=== PATIENT | male | born 1965 | race Caucasian/White ===

== ENCOUNTER 2018-06-06 12:41 | Emergency (ER) | payer SELFPAY ==
[2018-06-06] MEDS ORDERED: LIDOCAINE 2% MPF 5 ML VIAL ONE (13:26)
[2018-06-06] MEDS ORDERED: SMZ./TMP. 800/160 MG TABLET ONE (13:27)
--- NOTE | 2018-06-06 14:13 | EDPHYS ---
Physician Documentation [facility] Name: Len Riddle Age: 53 yrs Sex: Male : 1965 Arrival Date: 06/06/2018 Time: 12:43 Bed 24 Private MD: ED Physician Sixto Fields HPI: 06/06 14:08 This 53 yrs old Male presents to ER via Ambulatory with complaints of Boil. kb 14:08 The patient presents with an abscess of the right axilla. Description: draining, kb erythematous, swollen, warm. Onset: The symptoms/episode began/occurred 1 week(s) ago. Possible cause(s): unknown. Associated signs and symptoms: Pertinent positives: drainage, erythema, swelling, Pertinent negatives: foreign body sensation, fever, headache, nausea, shortness of breath, vomiting. Modifying factors: the symptoms are alleviated by nothing, the symptoms are aggravated by pressure, squeezing the lesion and expressing the contents, touching. Severity of symptoms: At their worst the symptoms were mild, in the emergency department the symptoms are unchanged. The patient has not experienced similar symptoms in the past. The patient has not recently seen a physician. Pt reports abscess that started a week ago. Reports it popped this morning there was a lot of purulent drainage so he thought he needed antibiotics. Historical: - Allergies: 13:00 No Known Allergies; hb - Home Meds: 13:00 terazosin oral oral [Active]; Trazodone Oral [Active]; Prozac 10 mg Oral cap [Active]; hb - PMHx: 13:00 Enlarged Prostate; insomnia; Anxiety; Depression; hb - PSHx: 13:00 Kidney stents; hb - Immunization history:: Adult Immunizations. - Social history:: Smoking status: Patient/guardian denies using tobacco. - Ebola Screening: : No symptoms or risks identified at this time. ROS: 14:08 Constitutional: Negative for fever, chills, and weight loss, ENT: Negative for injury, kb pain, and discharge, Neck: Negative for injury, pain, and swelling, Cardiovascular: Negative for chest pain, palpitations, and edema, Respiratory: Negative for shortness of breath, cough, wheezing, and pleuritic chest pain, Abdomen/GI: Negative for abdominal pain, nausea, vomiting, diarrhea, and constipation, MS/Extremity: Negative for injury and deformity, Neuro: Negative for headache, weakness, numbness, tingling, and seizure. 14:08 Skin: Positive for abscess, erythema, swelling, of the right axilla. Exam: 14:08 Constitutional: This is a well developed, well nourished patient who is awake, alert, kb and in no acute distress. Head/Face: Normocephalic, atraumatic. Chest/axilla: Normal chest wall appearance and motion. Nontender with no deformity. No lesions are appreciated. Cardiovascular: Regular rate and rhythm with a normal S1 and S2. No gallops, murmurs, or rubs. Normal PMI, no JVD. No pulse deficits. Respiratory: Lungs have equal breath sounds bilaterally, clear to auscultation and percussion. No rales, rhonchi or wheezes noted. No increased work of breathing, no retractions or nasal flaring. Abdomen/GI: Soft, non-tender, with normal bowel sounds. No distension or tympany. No guarding or rebound. No evidence of tenderness throughout. MS/ Extremity: Pulses equal, no cyanosis. Neurovascular intact. Full, normal range of motion. Neuro: Awake and alert, GCS 15, oriented to person, place, time, and situation. Cranial nerves II-XII grossly intact. Motor strength 5/5 in all extremities. Sensory grossly intact. Cerebellar exam normal. Normal gait. 14:08 Skin: abscess, that is small, of the right axilla, with drainage, with fluctuance. Vital Signs: 12:59 BP 144 / 94; Pulse 66; Resp 16; Temp 97.7; Pulse Ox 100% on R/A; Pain 6/10; hb 14:10 BP 122 / 83; Pulse 67; Resp 19; Pulse Ox 100% on R/A; ca1 Procedures: 14:08 I \T\ D: Incision and drainage was performed for an abscess of the right axilla. Prepped kb with Betadine, Anesthetized with 1 ml's 1% Lidocaine. Incised with #11 blade. Drained small amount purulent fluid. Dressing: sterile 4x4 gauze, the patient tolerated the procedure well. MDM: 13:03 Patient medically screened. kb 14:08 Data reviewed: vital signs, nurses notes. Data interpreted: Pulse oximetry: on room air kb is 100 %. Interpretation: normal. Counseling: I had a detailed discussion with the patient and/or guardian regarding: the historical points, exam findings, and any diagnostic results supporting the discharge/admit diagnosis, the need for outpatient follow up, a family practitioner, to return to the emergency department if symptoms worsen or persist or if there are any questions or concerns that arise at home. 06/06 14:04 Order name: Wound Culture ca1 06/06 13:09 Order name: I\T\D Setup; Complete Time: 13:13 kb Administered Medications: 13:19 Drug: Bactrim (160 mg-800 mg (DS) 1 tablet Route: PO; ca1 13:58 Follow up: Response: No adverse reaction ca1 13:40 Drug: Lidocaine (2 %) 1 vials Volume: 5 ml; Route: Infiltration; ca1 14:19 Follow up: Response: No adverse reaction ca1 Disposition: 14:31 Co-signature as Attending Physician, Sixto Fields MD I agree with the assessment and kdr plan of care. Disposition: 06/06/18 14:12 Discharged to Home. Impression: Cutaneous abscess of right axilla. - Condition is Stable. - Discharge Instructions: Skin Abscess, [id number], Incision and Drainage, Care After. - Prescriptions for Bactrim DS 800- 160 mg Oral Tablet - take 1 tablet by ORAL route every 12 hours for 10 days; 20 tablet. - Medication Reconciliation Form, Thank You Letter, Antibiotic Education, Prescription Opioid Use form. - Follow up: Emergency Department; When: As needed; Reason: Worsening of condition. Follow up: Private Physician; When: 2 - 3 days; Reason: Recheck today's complaints, Continuance of care, Re-evaluation by your physician. Signatures: Dispatcher [employer] EDKS Gail Anderson, KAREN-C KAREN-Sixto Graham MD MD [facility] Yuli Rogers RN RN Liz Dhillon RN RN ca1 Corrections: (The following items were deleted from the chart) 14:12 14:08 The patient presents with an abscess of the right lateral anterior chest, kb kb 14:12 14:08 Skin: Positive for abscess, erythema, swelling, of the right lateral anterior kb chest, kb 14:26 14:12 06/06/2018 14:12 Discharged to Home. Impression: Cutaneous abscess of right ca1 axilla. Condition is Stable. Forms are Medication Reconciliation Form, Thank You Letter, Antibiotic Education, Prescription Opioid Use. Follow up: Emergency Department; When: As needed; Reason: Worsening of condition. Follow up: Private Physician; When: 2 - 3 days; Reason: Recheck today's complaints, Continuance of care, Re-evaluation by your physician. kb
--- NOTE | 2018-06-06 14:13 | ER ---
Nurse's Notes [facility] Name: Len Riddle Age: 53 yrs Sex: Male : 1965 Arrival Date: 06/06/2018 Time: 12:43 Bed 24 Private MD: Diagnosis: Cutaneous abscess of right axilla Presentation: 06/06 12:58 Presenting complaint: Patient states: Abscess right flank x 1 week. Transition of care: hb patient was not received from another setting of care. Onset of symptoms was May 30, 2018. Risk Assessment: Do you want to hurt yourself or someone else? Patient reports no desire to harm self or others. Care prior to arrival: None. 12:58 Method Of Arrival: Ambulatory 12:58 Acuity: ISABEL 4 hb 13:05 Initial Sepsis Screen: Does the patient meet any 2 criteria? No. Patient's initial ca1 sepsis screen is negative. Does the patient have a suspected source of infection? Yes: Skin breakdown/wound. Historical: - Allergies: 13:00 No Known Allergies; hb - Home Meds: 13:00 terazosin oral oral [Active]; Trazodone Oral [Active]; Prozac 10 mg Oral cap [Active]; hb - PMHx: 13:00 Enlarged Prostate; insomnia; Anxiety; Depression; hb - PSHx: 13:00 Kidney stents; hb - Immunization history:: Adult Immunizations. - Social history:: Smoking status: Patient/guardian denies using tobacco. - Ebola Screening: : No symptoms or risks identified at this time. Screenin:05 Abuse screen: Denies threats or abuse. Nutritional screening: No deficits noted. ca1 Tuberculosis screening: No symptoms or risk factors identified. Fall Risk None identified. Assessment: 13:05 General: Appears in no apparent distress. comfortable, Behavior is calm, cooperative, ca1 appropriate for age. Pain: Complains of pain in at the area around the boil under the right armpit Pain does not radiate. Pain currently is 6 out of 10 on a pain scale. Pain began 2-3 days ago. Neuro: Level of Consciousness is awake, alert, obeys commands, Oriented to person, place, time, situation. Cardiovascular: Heart tones S1 S2 present Capillary refill < 3 seconds Patient's skin is warm and dry. Respiratory: Airway is patent Respiratory effort is even, unlabored, Respiratory pattern is regular, symmetrical, Breath sounds are clear bilaterally. GI: No deficits noted. No signs and/or symptoms were reported involving the gastrointestinal system. : No deficits noted. No signs and/or symptoms were reported regarding the genitourinary system. EENT: No deficits noted. No signs and/or symptoms were reported regarding the EENT system. Derm: Skin is healthy with good turgor, Skin is pink, warm \T\ dry. Wound noted boil under the R armpit. Musculoskeletal: Circulation, motion, and sensation intact. Capillary refill < 3 seconds. 14:10 Reassessment: Patient appears in no apparent distress at this time. Patient and/or ca1 family updated on plan of care and expected duration. Pain level reassessed. Patient is alert, oriented x 3, equal unlabored respirations, skin warm/dry/pink. Vital Signs: 12:59 BP 144 / 94; Pulse 66; Resp 16; Temp 97.7; Pulse Ox 100% on R/A; Pain 6/10; hb 14:10 BP 122 / 83; Pulse 67; Resp 19; Pulse Ox 100% on R/A; ca1 ED Course: 12:43 Patient arrived in ED. as 12:59 Triage completed. hb 13:00 Arm band placed on left wrist. hb 13:02 Gail Anderson FNP-C is [facility]. kb 13:02 Sixto Fields MD is Attending Physician. kb 13:05 Patient has correct armband on for positive identification. Placed in gown. Bed in low ca1 position. Call light in reach. Side rails up X 1. Pulse ox on. NIBP on. Warm blanket given. 13:13 Liz Dhillon, RN is Primary Nurse. ca1 13:40 Assist provider with I \T\ D: of an abscess on right axilla Set up I\T\D tray. Performed by ca 1 Gail HORNER Culture sent to lab. Wound packed. 4X4s, Dressing with 4X4s, tape Patient tolerated well. 14:08 Patient did not have IV access during this emergency room visit. ca1 Administered Medications: 13:19 Drug: Bactrim (160 mg-800 mg (DS) 1 tablet Route: PO; ca1 13:58 Follow up: Response: No adverse reaction ca1 13:40 Drug: Lidocaine (2 %) 1 vials Volume: 5 ml; Route: Infiltration; ca1 14:19 Follow up: Response: No adverse reaction ca1 Outcome: 14:12 Discharge ordered by MD. neumann 14:26 Discharged to home ambulatory. ca1 14:26 Condition: stable 14:26 Discharge instructions given to patient, Instructed on discharge instructions, follow up and referral plans. Demonstrated understanding of instructions, follow-up care, medications, Prescriptions given X 1. 14:26 Patient left the ED. ca1 Addendum: 06/10/2018 07:28 Addendum: Culture Results: Positive wound culture. No further action required. Bacteria s s sensitive to prescribed antibiotic. Signatures: Gail Anderson FNP-C FNP-Melissa Degroot Shelby, DONOVAN RN Yuli Rogers RN RN Liz Dhillon RN RN ca1 Corrections: (The following items were deleted from the chart) 06/06 14:18 14:08 Assist provider with I \T\ D: of an abscess on right axilla Set up I\T\D tray. ca 1 Performed by Gail HORNER Wound packed. 4X4s, Dressing with 4X4s, tape Patient tolerated well. ca1 14:25 13:40 Assist provider with I \T\ D: of an abscess on right axilla Set up I\T\D tray. ca 1 Performed by Gail HORNER Wound packed. 4X4s, Dressing with 4X4s, tape Patient tolerated well. ca1
[2018-06-06 14:39] VITALS: TEMP 97.7; O2SAT 100
[2018-06-06 14:40] VITALS: BP 122/83
== END 2018-06-06 14:26 | disposition home or self-care (01) ==
LOC: ER 12:41
PROC: 0J9D0ZZ Drainage of Right Upper Arm Subcutaneous Tissue and Fascia, Open Approach (ICD-10-PCS; principal; 2018-06-06)
DX: L02.411 Cutaneous abscess of right axilla (principal); N40.0 Benign prostatic hyperplasia without lower urinary tract symptoms; F41.9 Anxiety disorder, unspecified; F32.9 Major depressive disorder, single episode, unspecified
CPT/HCPCS: 87070; 87077; 87186; 87205; 99284

== ENCOUNTER 2018-07-06 12:28 | Emergency (ER) | payer SELFPAY ==
--- NOTE | 2018-07-06 13:29 | ER ---
Nurse's Notes [facility] Name: Len Riddle Age: 53 yrs Sex: Male : 1965 Arrival Date: 07/06/2018 Time: 12:29 Bed 25 Private MD: Diagnosis: Acute sinusitis Presentation: 07/06 12:49 Presenting complaint: Patient states: left ear pain and sinus pain for several days, iw chills, fatigue and dizziness. Transition of care: patient was not received from another setting of care. 12:49 Method Of Arrival: Ambulatory iw 12:50 Onset of symptoms was July 02, 2018. Risk Assessment: Do you want to hurt yourself or iw someone else? Patient reports no desire to harm self or others. Initial Sepsis Screen: Does the patient meet any 2 criteria? No. Patient's initial sepsis screen is negative. Does the patient have a suspected source of infection? No. Patient's initial sepsis screen is negative. Care prior to arrival: None. 12:50 Acuity: ISABEL 4 iw Historical: - Allergies: 12:51 No Known Allergies; iw - Home Meds: 12:51 Prozac 10 mg Oral tab [Active]; gabapentin 100 mg oral cap 3 times per day [Active]; iw - PMHx: 12:51 Anxiety; Depression; enlarged prostate; insomnia; iw - PSHx: 12:51 Kidney stents; iw - Immunization history:: Adult Immunizations not up to date. - Social history:: Smoking status: Patient/guardian denies using tobacco. - Ebola Screening: : Patient negative for fever greater than or equal to 101.5 degrees Fahrenheit, and additional compatible Ebola Virus Disease symptoms Patient denies exposure to infectious person Patient denies travel to an Ebola-affected area in the 21 days before illness onset No symptoms or risks identified at this time. Screenin:54 Abuse screen: Denies threats or abuse. Denies injuries from another. Nutritional aj screening: No deficits noted. Tuberculosis screening: No symptoms or risk factors identified. Fall Risk None identified. Assessment: 12:53 General: Appears in no apparent distress. comfortable, Behavior is calm, cooperative, aj appropriate for age. Pain: Denies pain. Neuro: Level of Consciousness is awake, alert, obeys commands, Oriented to person, place, time, situation, Appropriate for age. Respiratory: Airway is patent Trachea midline Respiratory effort is even, unlabored, Respiratory pattern is regular, symmetrical. EENT: Reports nasal congestion. Derm: Skin is intact, is healthy with good turgor, Skin is pink, warm \T\ dry. normal. Vital Signs: 12:51 BP 131 / 91; Pulse 70; Resp 16; Temp 98.0(O); Pulse Ox 97% on R/A; Weight 97.52 kg; iw Height 5 ft. 10 in. (177.80 cm); Pain 4/10; 13:37 BP 128 / 71; Pulse 70; Resp 20; Pulse Ox 96% on R/A; aj 12:51 Body Mass Index 30.85 (97.52 kg, 177.80 cm) iw ED Course: 12:29 Patient arrived in ED. as 12:41 Gail Anderson FNP-C is PHCP. kb 12:41 Denton Jeong MD is Attending Physician. kb 12:50 Triage completed. iw 12:51 Arm band placed on. iw 12:53 Anitha Paniagua, RN is Primary Nurse. aj 12:54 Patient has correct armband on for positive identification. aj 12:54 Flu and/or RSV swab sent to lab. Strep swab sent to lab. aj 13:29 Eden Knight MD is Referral Physician. kb 13:38 No provider procedures requiring assistance completed. Patient did not have IV access aj during this emergency room visit. Administered Medications: No medications were administered Outcome: 13:29 Discharge ordered by MD. kb 13:38 Discharged to home ambulatory. aj 13:38 Condition: good 13:38 Discharge instructions given to patient, Instructed on discharge instructions, follow up and referral plans. medication usage, Demonstrated understanding of instructions, follow-up care, medications. 13:39 Patient left the ED. aj Signatures: Gail Anderson FNP-C FNP-Anitha Farley, RN RN Melissa Soliman Irene, DONOVAN MAN iw
--- NOTE | 2018-07-06 13:29 | EDPHYS ---
Physician Documentation [facility] Name: Len Riddle Age: 53 yrs Sex: Male : 1965 Arrival Date: 07/06/2018 Time: 12:29 Bed 25 Private MD: ED Physician Denton Jeong HPI: 07/06 13:18 This 53 yrs old Male presents to ER via Ambulatory with complaints of Ear kb Pain, Sinus Pain. 13:18 The patient presents with pain, moderate. The complaints affect the left ear. Onset: kb The symptoms/episode began/occurred 3 day(s) ago. Modifying factors: The symptoms are alleviated by nothing, the symptoms are aggravated by nothing. Associated signs and symptoms: Pertinent positives: rhinorrhea, vertigo. Severity of symptoms: At their worst the symptoms were mild moderate in the emergency department the symptoms are unchanged. The patient has experienced similar episodes in the past, a few times. The patient has not recently seen a physician. Pt reports left ear pain that started a few days ago. Has had infection in that same ear a couple times a year. States he also has fatigue, sinus pain and congestion, headache and dizziness. Denies fever. Historical: - Allergies: 12:51 No Known Allergies; iw - Home Meds: 12:51 Prozac 10 mg Oral tab [Active]; gabapentin 100 mg oral cap 3 times per day [Active]; iw - PMHx: 12:51 Anxiety; Depression; enlarged prostate; insomnia; iw - PSHx: 12:51 Kidney stents; iw - Immunization history:: Adult Immunizations not up to date. - Social history:: Smoking status: Patient/guardian denies using tobacco. - Ebola Screening: : Patient negative for fever greater than or equal to 101.5 degrees Fahrenheit, and additional compatible Ebola Virus Disease symptoms Patient denies exposure to infectious person Patient denies travel to an Ebola-affected area in the 21 days before illness onset No symptoms or risks identified at this time. ROS: 13:16 Cardiovascular: Negative for chest pain, palpitations, and edema, Respiratory: Negative kb for shortness of breath, cough, wheezing, and pleuritic chest pain, Abdomen/GI: Negative for abdominal pain, nausea, vomiting, diarrhea, and constipation, MS/Extremity: Negative for injury and deformity, Skin: Negative for injury, rash, and discoloration. 13:16 Constitutional: Positive for chills, fatigue. 13:16 ENT: Positive for ear pain, rhinorrhea, sinus congestion. 13:16 Neuro: Positive for dizziness, headache. Exam: 13:16 Constitutional: This is a well developed, well nourished patient who is awake, alert, kb and in no acute distress. Head/Face: Normocephalic, atraumatic. ENT: Nares patent. No nasal discharge, no septal abnormalities noted. Tympanic membranes are normal and external auditory canals are clear. Oropharynx with no redness, swelling, or masses, exudates, or evidence of obstruction, uvula midline. Mucous membranes moist. Neck: Trachea midline, no thyromegaly or masses palpated, and no cervical lymphadenopathy. Supple, full range of motion without nuchal rigidity, or vertebral point tenderness. No Meningismus. Chest/axilla: Normal chest wall appearance and motion. Nontender with no deformity. No lesions are appreciated. Cardiovascular: Regular rate and rhythm with a normal S1 and S2. No gallops, murmurs, or rubs. Normal PMI, no JVD. No pulse deficits. Respiratory: Lungs have equal breath sounds bilaterally, clear to auscultation and percussion. No rales, rhonchi or wheezes noted. No increased work of breathing, no retractions or nasal flaring. Abdomen/GI: Soft, non-tender, with normal bowel sounds. No distension or tympany. No guarding or rebound. No evidence of tenderness throughout. Skin: Warm, dry with normal turgor. Normal color with no rashes, no lesions, and no evidence of cellulitis. MS/ Extremity: Pulses equal, no cyanosis. Neurovascular intact. Full, normal range of motion. Neuro: Awake and alert, GCS 15, oriented to person, place, time, and situation. Cranial nerves II-XII grossly intact. Motor strength 5/5 in all extremities. Sensory grossly intact. Cerebellar exam normal. Normal gait. 13:16 Head/face: Sinus tenderness, that is moderate, is located over the right frontal sinus, left frontal sinus, right maxillary sinus and left maxillary sinus. Vital Signs: 12:51 BP 131 / 91; Pulse 70; Resp 16; Temp 98.0(O); Pulse Ox 97% on R/A; Weight 97.52 kg; iw Height 5 ft. 10 in. (177.80 cm); Pain 4/10; 13:37 BP 128 / 71; Pulse 70; Resp 20; Pulse Ox 96% on R/A; aj 12:51 Body Mass Index 30.85 (97.52 kg, 177.80 cm) iw MDM: 12:41 Patient medically screened. kb 13:12 Data reviewed: vital signs, nurses notes. Data interpreted: Pulse oximetry: on room air kb is 97 %. Interpretation: normal. Counseling: I had a detailed discussion with the patient and/or guardian regarding: the historical points, exam findings, and any diagnostic results supporting the discharge/admit diagnosis, lab results, the need for outpatient follow up, a family practitioner, to return to the emergency department if symptoms worsen or persist or if there are any questions or concerns that arise at home. 07/06 12:48 Order name: Flu; Complete Time: 13:08 kb 07/06 12:48 Order name: Strep; Complete Time: 13:08 kb 07/06 13:08 Order name: Throat Culture EDMS Administered Medications: No medications were administered Disposition: 13:58 Co-signature as Attending Physician, Denton Jeong MD. rn Disposition: 07/06/18 13:29 Discharged to Home. Impression: Acute sinusitis. - Condition is Stable. - Discharge Instructions: Sinusitis, Adult, [id number]. - Medication Reconciliation Form, Thank You Letter, Antibiotic Education, Prescription Opioid Use form. - Follow up: Emergency Department; When: As needed; Reason: Worsening of condition. Follow up: Private Physician; When: 2 - 3 days; Reason: Recheck today's complaints, Continuance of care, Re-evaluation by your physician. Follow up: Eden Knight MD; When: 2 - 3 days; Reason: Recheck today's complaints. - Notes: Use Flonase as directed. Take an antihistamine with decongestant daily (zyrtec d, claritin d, or franc d) Signatures: Dispatcher [employer] EDMS Gail Anderson, BAT LATHE OPERATOR-C BAT LATHE OPERATOR-Anitha Farley RN RN Heaven Saxena RN RN iw Nieto, Roman, MD MD mds rn: (The following items were deleted from the chart) 13:18 13:16 ENT: Positive for rhinorrhea, sinus congestion, kb kb 13:29 13:29 07/06/2018 13:29 Discharged to Home. Impression: Acute sinusitis. Condition is kb Stable. Forms are Medication Reconciliation Form, Thank You Letter, Antibiotic Education, Prescription Opioid Use. Follow up: Emergency Department; When: As needed; Reason: Worsening of condition. Follow up: Private Physician; When: 2 - 3 days; Reason: Recheck today's complaints, Continuance of care, Re-evaluation by your physician. kb 13:39 13:29 07/06/2018 13:29 Discharged to Home. Impression: Acute sinusitis. Condition is aj Stable. Discharge Instructions: Sinusitis, Adult, [id number]. Forms are Medication Reconciliation Form, Thank You Letter, Antibiotic Education, Prescription Opioid Use. Follow up: Emergency Department; When: As needed; Reason: Worsening of condition. Follow up: Private Physician; When: 2 - 3 days; Reason: Recheck today's complaints, Continuance of care, Re-evaluation by your physician. Follow up: Eden Knight; When: 2 - 3 days; Reason: Recheck today's complaints. kb
[2018-07-06 13:42] VITALS: TEMP 98
[2018-07-06 13:43] VITALS: BP 128/71; O2SAT 96
== END 2018-07-06 13:39 | disposition home or self-care (01) ==
LOC: ER 12:28
DX: J01.90 Acute sinusitis, unspecified (principal); F41.9 Anxiety disorder, unspecified; F32.9 Major depressive disorder, single episode, unspecified
CPT/HCPCS: 87070; 87081; 87804; 99283

== ENCOUNTER 2019-12-20 11:25 | Emergency (ER) | payer SELFPAY ==
--- NOTE | 2019-12-20 12:11 | ER ---
Nurse's Notes [facility] Name: Len Riddle Age: 54 yrs Sex: Male : 1965 Arrival Date: 12/20/2019 Time: 11:27 Bed 5 Private MD: Diagnosis: Cellulitis of left lower limb Presentation: 12/19 11:36 Chief complaint: Patient states: Scrapped leg on tree and ladder Sunday. Abrasion down ll1 front of LLE. Pain, swelling, and redness started yesterday. No fever. Coronavirus screen: Client denies travel out of the [place] in the last 14 days. At this time, the client does not indicate any symptoms associated with coronavirus-19. Ebola Screen: Patient denies travel to an Ebola-affected area in the 21 days before illness onset. Initial Sepsis Screen: Does the patient meet any 2 criteria? No. Patient's initial sepsis screen is negative. Does the patient have a suspected source of infection? Yes: Skin breakdown/wound. Risk Assessment: Do you want to hurt yourself or someone else? Patient reports no desire to harm self or others. Onset of symptoms was December 15, 2019. 11:36 Method Of Arrival: Ambulatory ll1 11:36 Acuity: ISABEL 3 ll1 Historical: - Allergies: 11:36 No Known Allergies; ll1 - PMHx: 11:36 Anxiety; Depression; enlarged prostate; insomnia; Kidney stones; ll1 - PSHx: 11:36 Kidney stents; ll1 - Immunization history:: Flu vaccine is not up to date. - Social history:: Smoking status: Patient reports the use of cigarette tobacco products, cigars. Screenin:45 Abuse screen: Denies threats or abuse. Nutritional screening: No deficits noted. vg1 Tuberculosis screening: No symptoms or risk factors identified. Fall Risk No fall in past 12 months (0 pts). No secondary diagnosis (0 pts). No IV (0 pts). Gait- Normal/Bed Rest/Wheelchair (0 pts) Total Allen Fall Scale indicates No Risk (0-24 pts). Assessment: 11:45 General: Appears in no apparent distress. Behavior is calm, cooperative. Pain: vg1 Complains of pain in left stein. Neuro: Level of Consciousness is awake, alert, obeys commands, Oriented to person, place, time, situation. Cardiovascular: Capillary refill < 3 seconds Pulses are palpable in left dorsalis pedis artery. Respiratory: Airway is patent Respiratory effort is even, unlabored. Derm: Skin is pink, warm \T\ dry. LLE redness noted and warm to touch. Musculoskeletal: Swelling present in left stein and dorsum of left foot and left ankle. 12:45 Reassessment: Patient appears in no apparent distress at this time. No changes from vg1 previously documented assessment. Patient and/or family updated on plan of care and expected duration. Pain level reassessed. Pain level 8/10. Vital Signs: 11:36 BP 136 / 95; Pulse 85; Resp 17; Temp 98.0; Pulse Ox 97% ; Weight 97.52 kg; Height 5 ft. ll1 10 in. (177.80 cm); Pain 8/10; 11:49 BP 141 / 99; Pulse 80; Resp 14; Pulse Ox 98% on R/A; Pain 8/10; vg1 12:00 BP 125 / 84; Pulse 89; Resp 14; Pulse Ox 97% on R/A; vg1 11:36 Body Mass Index 30.85 (97.52 kg, 177.80 cm) ll1 ED Course: 11:27 Patient arrived in ED. ds1 11:36 Arm band placed on Patient placed in an exam room, on a stretcher. ll1 11:38 Triage completed. ll1 11:39 Kai Payne PA is PHCP. [facility] 11:39 Eugene Mirza MD is Attending Physician. [facility] 11:41 Olena Mancuso, RN is Primary Nurse. sv 11:45 No provider procedures requiring assistance completed. Patient did not have IV access vg1 during this emergency room visit. 11:47 Patient has correct armband on for positive identification. Bed in low position. Call vg1 light in reach. Pulse ox on. NIBP on. Door closed. 11:50 Nurse Practitioner and/or Physician Mission Commander to see patient. Kai KILLIAN at bedside. 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 Exp: vg1 05/01/2022. Lot #: [id number]. } Route: IM; Site: left deltoid; 12:50 Follow up: Response: No adverse reaction vg1 Outcome: 12:10 Discharge ordered by . fiorella 12:53 Discharged to home ambulatory, with family. vg1 12:53 Condition: good 12:53 Discharge instructions given to patient, Instructed on discharge instructions, follow up and referral plans. medication usage, Demonstrated understanding of instructions, follow-up care, medications, Prescriptions given X 3. 12:55 Patient left the ED. vg1 Signatures: Eden Reynaga RN RN Kai Payne PA PA jmm Sanford, Demi ds1 Olena Mancuso RN RN vg1 Shannan Islas RN RN ll1 Corrections: (The following items were deleted from the chart) 12:05 11:45 Derm: Skin is pink, warm \T\ dry. vg1 vg1
--- NOTE | 2019-12-20 12:11 | EDPHYS ---
Physician Documentation [facility] Name: Len Riddle Age: 54 yrs Sex: Male : 1965 Arrival Date: 12/20/2019 Time: 11:27 Bed 5 Private MD: ED Physician Eugene Mirza HPI: 12/19 11:41 This 54 yrs old Male presents to ER via Ambulatory with complaints of Leg jmm Pain. 11:41 The patient presents with an injury, pain. Onset: The symptoms/episode began/occurred jm acutely, 5 day(s) ago. Modifying factors: The symptoms are alleviated by nothing. the symptoms are aggravated by nothing. 11:41 Associated signs and symptoms: Pertinent positives: swelling, Pertinent negatives calf jmm tenderness, fever. 11:41 This is a 54 year old male with no chronic medical conditions that presents to the ED jmm with complaints of swelling to his left lower leg. Patient scraped his leg against a tree this past Sunday. Redness and swelling began today. Patient is not UTD on tetanus immunizations. . Historical: - Allergies: 11:36 No Known Allergies; ll1 - PMHx: 11:36 Anxiety; Depression; enlarged prostate; insomnia; Kidney stones; ll1 - PSHx: 11:36 Kidney stents; ll1 - Immunization history:: Flu vaccine is not up to date. - Social history:: Smoking status: Patient reports the use of cigarette tobacco products, cigars. ROS: 11:41 Constitutional: Negative for fever, chills, and weight loss, Cardiovascular: Negative jmm for chest pain, palpitations, and edema, Respiratory: Negative for shortness of breath, cough, wheezing, and pleuritic chest pain. 11:41 MS/extremity: Positive for swelling. 11:41 Skin: Positive for erythema. 11:41 All other systems are negative. Exam: 11:41 Constitutional: This is a well developed, well nourished patient who is awake, alert, jmm and in no acute distress. Head/Face: atraumatic. Eyes: EOMI, no conjunctival erythema appreciated ENT: Moist Mucus Membranes Neck: Trachea midline, Supple Chest/axilla: Normal chest wall appearance and motion. Cardiovascular: Regular rate and rhythm. No edema appreciated Respiratory: Normal respirations, no respiratory distress appreciated Abdomen/GI: Non distended, soft Back: Normal ROM 11:41 Skin: abrasion noted with surrounding erythema to the left lower leg. 11:41 Neuro: Orientation: is normal, Mentation: is normal, Memory: is normal. 11:41 Psych: Behavior/mood is pleasant, cooperative. Vital Signs: 11:36 BP 136 / 95; Pulse 85; Resp 17; Temp 98.0; Pulse Ox 97% ; Weight 97.52 kg; Height 5 ft. ll1 10 in. (177.80 cm); Pain 8/10; 11:49 BP 141 / 99; Pulse 80; Resp 14; Pulse Ox 98% on R/A; Pain 8/10; vg1 12:00 BP 125 / 84; Pulse 89; Resp 14; Pulse Ox 97% on R/A; vg1 11:36 Body Mass Index 30.85 (97.52 kg, 177.80 cm) ll1 MDM: 11:41 Patient medically screened. deana 12:10 Data reviewed: vital signs, nurses notes. Counseling: I had a detailed discussion with fiorella the patient and/or guardian regarding: the historical points, exam findings, and any diagnostic results supporting the discharge/admit diagnosis, radiology results, the need for outpatient follow up, to return to the emergency department if symptoms worsen or persist or if there are any questions or concerns that arise at home. Administered Medications: 12:32 Drug: Bactrim (160 mg-800 mg (DS) 1 tablet Route: PO; vg1 12:51 Follow up: Response: No adverse reaction; No change in condition vg1 12:32 Drug: Augmentin 875 mg Route: PO; vg1 12:51 Follow up: Response: No adverse reaction; No change in condition vg1 12:32 Drug: [place] 5 mg-325 mg 1 tabs {Note: RASS 0.} Route: PO; vg1 12:51 Follow up: Response: No adverse reaction; RASS: Alert and Calm (0) vg1 12:32 Drug: Tetanus-Diphtheria Toxoid Adult 0.5 ml {[place]: [employer]. Exp: vg1 05/01/2022. Lot #: [id number]. } Route: IM; Site: left deltoid; 12:50 Follow up: Response: No adverse reaction vg1 Disposition: 18:00 Co-signature as Attending Physician, Eugene Mirza MD I agree with the assessment and deana plan of care. Disposition: 10/10/20 12:10 Discharged to Home. Impression: Cellulitis of left lower limb. - Condition is Stable. - Discharge Instructions: Cellulitis, Adult. - Prescriptions for Augmentin 875- 125 mg Oral Tablet - take 1 tablet by ORAL route every 12 hours for 10 days; 20 tablet. Bactrim DS 800- 160 mg Oral Tablet - take 1 tablet by ORAL route every 12 hours for 10 days; 20 tablet. Ultracet 37.5- 325 mg Oral Tablet - take 1 tablet by ORAL route every 6 hours - for up to 5 days; do not exceed 8 tablets per day.; 20 tablet. - Medication Reconciliation Form, Thank You Letter, Antibiotic Education, Prescription Opioid Use form. - Follow up: Private Physician; When: 2 - 3 days; Reason: Recheck today's complaints, Continuance of care, Re-evaluation by your physician. Signatures: Eugene Mirza MD MD cha Mickail, Joel, PA PA jmm Garcia, Victoria, RN RN vg1 Shannan Islas RN RN ll1 Corrections: (The following items were deleted from the chart) 12:53 11:41 Modifying factors: The symptoms are alleviated by nothing. the symptoms are jmm aggravated by nothing. [facility] 12:55 12:10 12/20/2019 12:10 Discharged to Home. Impression: Cellulitis of left lower limb. vg1 Condition is Stable. Forms are Medication Reconciliation Form, Thank You Letter, Antibiotic Education, Prescription Opioid Use. Follow up: Private Physician; When: 2 - 3 days; Reason: Recheck today's complaints, Continuance of care, Re-evaluation by your physician. [facility]
[2019-12-20] MEDS ORDERED: SMZ./TMP. 800/160 MG TABLET ONE ×2 (12:25→12:45)
[2019-12-20] MEDS ORDERED: AMOX/K CLAV 875 MG TAB ONE ×2 (12:26→12:45)
[2019-12-20] MEDS ORDERED: HYDROCODONE/APAP 5/325 MG TAB ONE ×2 (12:26→12:45)
[2019-12-20] MEDS ORDERED: TETANUS & DIPHTHERIA TOX,ADULT 0.5 ML VIAL ONE ×2 (12:28→12:46)
[2019-12-20 13:02] VITALS: TEMP 98
[2019-12-20 13:05] VITALS: BP 125/84; O2SAT 97
== END 2019-12-20 12:55 | disposition home or self-care (01) ==
LOC: ER 11:25
DX: L03.116 Cellulitis of left lower limb (principal); F17.290 Nicotine dependence, other tobacco product, uncomplicated; Z23 Encounter for immunization
CPT/HCPCS: 90471; 90714; 99283

== ENCOUNTER 2022-03-11 13:10 | Emergency (ER) | payer SELFPAY ==
[2022-03-11] MEDS ORDERED: BUPIVACAINE 0.5% PF 10 ML VIAL ONE (13:48)
[2022-03-11] MEDS ORDERED: LIDOCAINE 1% MPF 5 ML VIAL ONE (13:48)
[2022-03-11] MEDS ORDERED: TDAP (DIPHTH,PERTUSS(ACELL),TET VAC) 0.5 ML VIAL IMVAC ONE (13:49)
[2022-03-11] MEDS ORDERED: DOXYCYCLINE 100 MG CAP PO ONE ×2 (14:24→14:25)
--- NOTE | 2022-03-11 15:13 | ER ---
Nurse's Notes [facility] Name: eLn Riddle Age: 57 yrs Sex: Male : 1965 Arrival Date: 03/11/2022 Time: 13:11 Bed 11 Private MD: Diagnosis: Laceration with foreign body of right thumb without damage to nail, initial encounter Presentation: 03/11 13:29 Chief complaint: Patient states: accidentally cut right thumb with utility knife kb3 yesterday around 1800. Coronavirus screen: Vaccine status: Patient reports receiving the 2nd dose of the covid vaccine. Client denies travel out of the [place] in the last 14 days. Ebola Screen: Patient negative for fever greater than or equal to 101.5 degrees Fahrenheit, and additional compatible Ebola Virus Disease symptoms Patient denies exposure to infectious person. Patient denies travel to an Ebola-affected area in the 21 days before illness onset. No symptoms or risks identified at this time. Initial Sepsis Screen: Does the patient meet any 2 criteria? No. Patient's initial sepsis screen is negative. Does the patient have a suspected source of infection? No. Patient's initial sepsis screen is negative. Risk Assessment: Do you want to hurt yourself or someone else? Patient reports no desire to harm self or others. Onset of symptoms was March 10, 2022 at 18:00. 13:29 Method Of Arrival: Ambulatory 3 13:29 Acuity: ISABEL 4 kb3 14:38 Acuity: ISABEL 3 jl7 Triage Assessment: 13:30 General: Appears in no apparent distress. Behavior is calm, cooperative. Pain: kb3 Complains of pain in dorsal aspect of distal phalanx of right thumb and dorsal aspect of proximal phalanx of right thumb Pain does not radiate. Pain currently is 5 out of 10 on a pain scale. Quality of pain is described as burning, heavy, Pain began 1 day ago. Is continuous. 13:30 Injury Description: Laceration sustained to dorsal aspect of distal phalanx of right kb3 thumb and dorsal aspect of proximal phalanx of right thumb is 0.5 to 2.5 cm long, was sustained 12-24 hours ago. a small amount of bleeding noted at this time. Historical: - Allergies: 13:30 No Known Allergies; kb3 - Home Meds: 13:30 gabapentin 100 mg Oral cap 3 times per day [Active]; Prozac 10 mg Oral tab [Active]; kb3 Trazodone Oral [Active]; - PMHx: 13:30 Anxiety; Depression; enlarged prostate; insomnia; Kidney stones; kb3 - PSHx: 13:30 Lithotripsy; kb3 - Immunization history:: Adult Immunizations up to date, Client reports receiving the 2nd dose of the Covid vaccine, Last tetanus immunization: unknown. - Social history:: Smoking status: Patient reports the use of cigarette tobacco products, cigars. Screenin:33 [facility] ED Fall Risk Assessment (Adult) History of falling in the last 3 months, kb3 including since admission No falls in past 3 months (0 pts) Confusion or Disorientation No (0 pts) Intoxicated or Sedated No (0 pts) Impaired Gait No (0 pts) Mobility Assist Device Used No (0 pt) Altered Elimination No (0 pt) Score/Fall Risk Level 0 - 2 = Low Risk Oriented to surroundings, Maintained a safe environment, Educated pt \T\ family on fall prevention, incl call for assistance when getting out of bed, Assessed \T\ reinforced patient's understanding of fall precautions, Provided non-skid footwear, Hourly rounding (assess needs \T\ fall precautionary measures) done, Used ambulatory aids as needed (educated on \T\ assisted with), Used gait belt as appropriate. Abuse screen: Denies threats or abuse. Denies injuries from another. Nutritional screening: No deficits noted. Tuberculosis screening: No symptoms or risk factors identified. Assessment: 13:33 General: see triage note. kb3 14:25 General: Ambulatory to restroom without distress. kb3 Vital Signs: 13:19 BP 141 / 106 LA Sitting (/lg); Pulse 93; Resp 16; Temp 97.8(O); Pulse Ox 97% on R/A; zm Weight 107.05 kg; Height 5 ft. 9 in. (175.26 cm); Pain 5/10; 13:19 Body Mass Index 34.85 (107.05 kg, 175.26 cm) ED Course: 13:11 Patient arrived in ED. rg4 13:13 [facility]C [facility] snw 13:13 Denton Jeong MD is Attending Physician. snw 13:21 Almita Moseley, RN is Primary Nurse. kb3 13:30 Triage completed. kb3 13:30 Arm band placed on right wrist. Patient placed in an exam room. kb3 13:33 Patient has correct armband on for positive identification. kb3 13:33 Suture repair. Patient did not have IV access during this emergency room visit. kb3 15:05 Hand Right 3 View XRAY In Process Unspecified. EDMS 15:50 Wound care: to laceration located on dorsal aspect of proximal phalanx of right thumb ph and dorsal aspect of distal phalanx of right thumb was dressed with Kerlix, Vaseline gauze, Patient tolerated well. Administered Medications: 13:48 Drug: Tetanus-Diphtheria Toxoid Adult 0.5 ml {Grey Tender: [place] [employer] ([place]). Exp: kb3 09/23/2022. Lot #: [id number]. } {Note: tDap administered due to tetanus unavailable, [facility] RN aware.} Route: IM; Site: right deltoid; 15:52 Follow up: Response: No adverse reaction ph 13:51 Drug: Marcaine (bupivacaine) (0.5 %) 5 ml Volume: 10 ml; Route: Infiltration; kb3 13:51 Drug: Hibiclens (chlorhexidine) Liquid 4 % 1 application Route: Topical; Site: affected kb3 area; 13:52 Drug: Lidocaine (1 %) 5 mg Route: Infiltration; kb3 14:25 Drug: Doxycycline 100 mg Route: PO; kb3 15:51 Follow up: Response: No adverse reaction ph Medication: 15:51 Vaccine Information Statement (VIS) provided today. Questions and/or concerns ph addressed. VIS edition date: October 15, 2020. Outcome: 15:12 Discharge ordered by . snselene 15:50 Discharged to home ambulatory. ph 15:50 Condition: good 15:50 Discharge instructions given to patient, Instructed on discharge instructions, follow up and referral plans. medication usage, Demonstrated understanding of instructions, follow-up care, medications, Prescriptions given X 2. 15:52 Patient left the ED. ph Signatures: Dispatcher [employer] EDMS Anai Fischer FNP-C FNP-Vanna Muñiz RN RN ph Yanelis Mancuso Jahala, RN RN jl7 Anneliese Sherman Kelly, RN RN kb3 Corrections: (The following items were deleted from the chart) 13:31 13:30 Home Meds: terazosin Oral; kb3 kb3 13:33 13:30 Pain: Complains of pain in dorsal aspect of distal phalanx of right thumb and kb3 dorsal aspect of proximal phalanx of right thumb kb3
--- NOTE | 2022-03-11 15:13 | EDPHYS ---
Physician Documentation [facility] Name: Len Riddle Age: 57 yrs Sex: Male : 1965 Arrival Date: 03/11/2022 Time: 13:11 Bed 11 Private MD: ED Physician Denton Jeong HPI: 03/11 13:58 This 57 yrs old Male presents to ER via Ambulatory with complaints of Finger Laceration.snw 13:58 The patient has a laceration related to: doing crafts, occurred at home, and there are snw no complicating factors. The laceration(s) is(are) located on the lateral aspect of right hand. Onset: The symptoms/episode began/occurred suddenly, just prior to arrival. Associated signs and symptoms: The patient has no apparent associated signs or symptoms. Onset: The symptoms/episode began/occurred acutely. Associated signs and symptoms: The patient has no apparent associated signs or symptoms. The patient has not experienced similar symptoms in the past. The patient has not recently seen a physician. unable to recall last tetanus. Historical: - Allergies: 13:30 No Known Allergies; kb3 - Home Meds: 13:30 gabapentin 100 mg Oral cap 3 times per day [Active]; Prozac 10 mg Oral tab [Active]; kb3 Trazodone Oral [Active]; - PMHx: 13:30 Anxiety; Depression; enlarged prostate; insomnia; Kidney stones; kb3 - PSHx: 13:30 Lithotripsy; kb3 - Immunization history:: Adult Immunizations up to date, Client reports receiving the 2nd dose of the Covid vaccine, Last tetanus immunization: unknown. - Social history:: Smoking status: Patient reports the use of cigarette tobacco products, cigars. ROS: 13:58 Constitutional: Negative for fever, chills, and weight loss, Eyes: Negative for injury, snw pain, redness, and discharge, ENT: Negative for injury, pain, and discharge, Neck: Negative for injury, pain, and swelling, Cardiovascular: Negative for chest pain, palpitations, and edema, Respiratory: Negative for shortness of breath, cough, wheezing, and pleuritic chest pain, Abdomen/GI: Negative for abdominal pain, nausea, vomiting, diarrhea, and constipation, Back: Negative for injury and pain, : Negative for injury, bleeding, discharge, and swelling, MS/Extremity: Negative for injury and deformity, Neuro: Negative for headache, weakness, numbness, tingling, and seizure, Psych: Negative for depression, anxiety, suicide ideation, homicidal ideation, and hallucinations. 13:58 Skin: Positive for laceration(s), of the dorsal aspect of proximal phalanx of right thumb and dorsal aspect of distal phalanx of right thumb. Exam: 13:51 Constitutional: This is a well developed, well nourished patient who is awake, alert, snw and in no acute distress. Head/Face: Normocephalic, atraumatic. Eyes: Pupils equal round and reactive to light, extra-ocular motions intact. Lids and lashes normal. Conjunctiva and sclera are non-icteric and not injected. Cornea within normal limits. Periorbital areas with no swelling, redness, or edema. ENT: Nares patent. No nasal discharge, no septal abnormalities noted. Tympanic membranes are normal and external auditory canals are clear. Oropharynx with no redness, swelling, or masses, exudates, or evidence of obstruction, uvula midline. Mucous membranes moist. Neck: Trachea midline, no thyromegaly or masses palpated, and no cervical lymphadenopathy. Supple, full range of motion without nuchal rigidity, or vertebral point tenderness. No Meningismus. Chest/axilla: Normal chest wall appearance and motion. Nontender with no deformity. No lesions are appreciated. Cardiovascular: Regular rate and rhythm with a normal S1 and S2. No gallops, murmurs, or rubs. Normal PMI, no JVD. No pulse deficits. Respiratory: Lungs have equal breath sounds bilaterally, clear to auscultation and percussion. No rales, rhonchi or wheezes noted. No increased work of breathing, no retractions or nasal flaring. Abdomen/GI: Soft, non-tender, with normal bowel sounds. No distension or tympany. No guarding or rebound. No evidence of tenderness throughout. Back: No spinal tenderness. No costovertebral tenderness. Full range of motion. MS/ Extremity: Pulses equal, no cyanosis. Neurovascular intact. Full, normal range of motion. Neuro: Awake and alert, GCS 15, oriented to person, place, time, and situation. Cranial nerves II-XII grossly intact. Motor strength 5/5 in all extremities. Sensory grossly intact. Cerebellar exam normal. Normal gait. Psych: Awake, alert, with orientation to person, place and time. Behavior, mood, and affect are within normal limits. 13:51 Skin: Appearance: Color: normal in color, injury, laceration(s), the wound is approximately 6 cm(s), with a depth of 2.5 cm(s), of the dorsal aspect of proximal phalanx of right thumb and dorsal aspect of distal phalanx of right thumb. Vital Signs: 13:19 BP 141 / 106 LA Sitting (/lg); Pulse 93; Resp 16; Temp 97.8(O); Pulse Ox 97% on R/A; zm Weight 107.05 kg; Height 5 ft. 9 in. (175.26 cm); Pain 5/10; 13:19 Body Mass Index 34.85 (107.05 kg, 175.26 cm) zm Laceration: 14:10 Wound Repair of 6cm ( 2.4in ) subcutaneous laceration to dorsal aspect of proximal snw phalanx of right thumb and dorsal aspect of distal phalanx of right thumb. Linear shaped.. Distal neuro/vascular/tendon intact. Anesthesia: Digital block administered with 5 mls of 1% lidocaine, Digital block administered with 5 mls of 0.25% marcaine. Wound prep: Extensive cleansing with hibiclenz. Skin closed with 4-0 Prolene using simple sutures and sterile technique. Skin closed with 8 4-0 Prolene using simple sutures and sterile technique. Dressed with tube gauze. Patient tolerated well. MDM: 13:13 Patient medically screened. snw 15:11 Data reviewed: vital signs, nurses notes. Data interpreted: Pulse oximetry: on room air snw is 97 %. Interpretation: normal. Counseling: I had a detailed discussion with the patient and/or guardian regarding: the historical points, exam findings, and any diagnostic results supporting the discharge/admit diagnosis, radiology results, the need for outpatient follow up, to return to the emergency department if symptoms worsen or persist or if there are any questions or concerns that arise at home. Response to treatment: the patient's symptoms have markedly improved after treatment. Special discussion: I have referred the patient to see his PCP for further evaluation of high blood pressure. Based on the history and exam findings, there is no indication for further emergent testing or inpatient evaluation. I discussed with the patient/guardian the need to see the primary care provider for further evaluation of the symptoms. 03/11 13:57 Order name: Hand Right 3 View XRAY; Complete Time: 15:24 snw 03/11 13:42 Order name: Wound Care; Complete Time: 14:20 snw 03/11 13:42 Order name: Suture Tray Setup; Complete Time: 13:46 snw Administered Medications: 13:48 Drug: Tetanus-Diphtheria Toxoid Adult 0.5 ml {Yarn Man: [employer] ([employer]). Exp: kb3 09/23/2022. Lot #: [id number]. } {Note: tDap administered due to tetanus unavailable, Anai UTILIZATION SUPERVISOR aware.} Route: IM; Site: right deltoid; 15:52 Follow up: Response: No adverse reaction ph 13:51 Drug: Marcaine (bupivacaine) (0.5 %) 5 ml Volume: 10 ml; Route: Infiltration; kb3 13:51 Drug: Hibiclens (chlorhexidine) Liquid 4 % 1 application Route: Topical; Site: affected kb3 area; 13:52 Drug: Lidocaine (1 %) 5 mg Route: Infiltration; kb3 14:25 Drug: Doxycycline 100 mg Route: PO; kb3 15:51 Follow up: Response: No adverse reaction ph Disposition: 17:54 Co-signature as Attending Physician, Denton Jeong MD. rn Disposition Summary: 03/11/22 15:12 Discharge Ordered Location: Home snw Condition: Stable snw Diagnosis - Laceration with foreign body of right thumb without damage to nail, initial snw encounter Followup: snw - With: Emergency Department - When: As needed - Reason: Worsening of condition Followup: snw - With: Private Physician - When: 10 - 14 days - Reason: Staple/Suture removal Discharge Instructions: - Discharge Summary Sheet snw - Laceration Care, Adult snw - Sutured Wound Care snw - Hand Washing snw - Hand Exercises snw Forms: - Medication Reconciliation Form snw - Thank You Letter snw - Antibiotic Education snw - Prescription Opioid Use snw Prescriptions: - Mobic 7.5 mg Oral Tablet - take 1 tablet by ORAL route once daily take with food; 20 tablet; Refills: 0, snw Product Selection Permitted - Doxycycline Hyclate 100 mg Oral Tablet - take 1 tablet by ORAL route every 12 hours; 20 tablet; Refills: 0, Product snw Selection Permitted Signatures: Dispatcher [employer] EDMS Anai Fischer, HOUSING PROPERTY MANAGER-C HOUSING PROPERTY MANAGER-Csnw Denton Jeong MD MD rn Bradberry, Kelly, RN RN kb3 Vanna Jean RN ph Corrections: (The following items were deleted from the chart) 13:31 13:30 Home Meds: terazosin Oral; kb3 kb3 14:03 13:42 Hand Left 3 View+RAD.RAD.BRZ ordered. EDMS EDMS 15:12 14:10 Wound Repair of 6cm ( 2.4in ) subcutaneous laceration to dorsal aspect of snw proximal phalanx of right thumb and dorsal aspect of distal phalanx of right thumb. Linear shaped.. Distal neuro/vascular/tendon intact. Anesthesia: Digital block administered with 5 mls of 1% lidocaine, Digital block administered with 5 mls of 0.25% marcaine. Wound prep: Extensive cleansing with hibiclenz. Skin closed with 4-0 Prolene using simple sutures and sterile technique. Dressed with tube gauze. Patient tolerated well. snw
--- NOTE | 2022-03-11 15:20 | RAD REPORT ---
EXAM DESCRIPTION: RAD - Hand Right 3 View - 03/11/2022 3:04 pm CLINICAL HISTORY: laceration COMPARISON: No comparisons FINDINGS/IMPRESSION: No acute fracture. No malalignment. No significant focal degenerative changes. No radiopaque foreign body
[2022-03-11 15:59] VITALS: BP 141/106; TEMP 97.8; O2SAT 97
== END 2022-03-11 15:52 | disposition home or self-care (01) ==
LOC: ER 13:10
PROC: 0HQFXZZ Repair Right Hand Skin, External Approach (ICD-10-PCS; principal; 2022-03-11)
DX: S61.011A Laceration without foreign body of right thumb without damage to nail, initial encounter (principal); Z23 Encounter for immunization
CPT/HCPCS: 90471; 99284; J2001

== ENCOUNTER 2022-11-24 19:06 | Observation (INO) | payer SELFPAY ==
--- OUTSIDE RECORDS SUMMARY | 2022-11-24 19:09 | XMS REPORT | Continuity of Care Document ---
:1965 Author Organization [facility] t Address [address] [place] [address] [address] [place] [address] Care Team Providers Name Role Phone Unavailable Unavailable Unavailable Problems This patient has no known problems. Allergies, Adverse Reactions, Alerts This patient has no known allergies or adverse reactions. Medications This patient has no known medications. Procedures This patient has no known procedures. Encounters Start End Encounter Admission Attending Care Care Encounter Source Date/Time Date/Time Type Type Clinicians Facility Department ID 2022-11-10 2022-11-10 Outpatient [facility] Farhad 10:55:06 10:55:06 [id number] Colon 2022-11-09 2022-11-09 Outpatient [facility] Farhad 17:06:19 17:06:19 [id number] Colon 2022-09-25 2022-09-25 Outpatient [facility] Farhad 13:16:51 13:16:51 [id number] F Colon 2022-09-08 2022-09-08 Outpatient [facility] Farhad 16:42:53 16:42:53 [id number] F Colon 2022-06-26 2022-06-26 Outpatient [facility] Farhad 14:13:43 14:13:43 [id number] Colon 2022-02-20 2022-02-20 Outpatient [facility] Farhad 17:17:11 17:17:11 [facility] 2022-02-03 2022-02-03 Outpatient [facility] Farhad 13:57:40 13:57:40 Ata Results Test Description Test Time Test Comments Results Result Comments Source SEDIMENTATION RATE 2022-11-11 07:37:11 Test Item Value Reference Range Interpretation Comme nts SEDIMENTATION RATE (test code = 2 MM/HOUR 0-15 UNLESS OTHERWISE INDICATED, ALL 1017) TESTING PERFORM ED AT CLINICAL PATHOLOGY [facility]. [address] [place] [address] LABORATORY DIRE CTOR: Brendon ZEE SANDRA NUMBER [id number] [facility] [place]. [id number] CBC W/AUTO DIFF WITH [id number] 07:35:18 Test Item Value Reference Range Interpretation Comments WBC (test code = 6.8 K/UL 3.5-11.0 1001) RBC (test code = 5.01 M/UL 4.50-6.10 1002) HEMOGLOBIN (test code 17.2 G/DL 13.5-17.0 H = 1003) HEMATOCRIT (test code 49.7 % 40.0-51.0 = 1004) MCV (test code = 99.2 fL 80.0-99.0 H 1005) MCH (test code = 34.3 PG 25.0-33.0 H 1006) MCHC (test code = 34.6 G/DL 31.0-36.0 1007) RDW (test code = 11.8 % 11.5-15.0 1038) NEUTROPHILS (test 51.4 % code = 1008) LYMPHOCYTES (test 35.4 % code = 1010) MONOCYTES (test code 7.9 % = 1011) EOSINOPHILS (test 3.7 % code = 1012) BASOPHILS (test code 0.9 % = 1013) IMMATURE GRANULOCYTES 0.7 % (test code = 1036) NUCLEATED RBCS (test 0.0 /100 WBC'S See_Comment [Aut omated code = 1065) message] The sy stem which generated this result transmitted reference range : 0.0. The refere nce range was not u sed to interpret th is result as normal/abnormal . PLATELET COUNT (test 271 K/UL 130-400 code = 1015) ABSOLUTE NEUTROPHILS 3.49 K/UL 1.50-7.50 (test code = 1066) ABSOLUTE LYMPHOCYTES 2.41 K/UL 1.00-4.00 (test code = 1067) ABSOLUTE MONOCYTES 0.54 K/UL 0.20-1.00 (test code = 1068) ABSOLUTE EOSINOPHILS 0.25 K/UL 0.00-0.50 (test code = 1040) ABSOLUTE BASOPHILS 0.06 K/UL 0.00-0.20 (test code = 1069) ABS IMMATURE 0.05 K/UL 0.00-0.10 GRANULOCYTES (test code = 1020) ABS NUCLEATED RBCS 0.00 K/UL 0.00-0.11 (test code = 23880) COMPREHENSIVE METABOLIC [id number] 05:07:17 Test Item Value Reference Range Interpretation Comments GLUCOSE (test code = 100 MG/DL 70-99 H 2216) BUN (test code = 18 MG/DL 6-20 2207) CREATININE (test 1.19 MG/DL 0.80-1.40 code = 2213) eGFR (2020 CKD-EPI) 70 ML/MIN/1.73 >60 (test code = 82818) CALC BUN/CREAT (test 15 RATIO 6-28 code = 223) SODIUM (test code = 140 MEQ/L 630-196 5824) POTASSIUM (test code 5.0 MEQ/L 3.5-5.4 = 2227) CHLORIDE (test code 103 MEQ/L 95-107 = 2214) CARBON DIOXIDE (test 26 MEQ/L 19-31 code = 2205) CALCIUM (test code = 9.6 MG/DL 8.5-10.5 2208) PROTEIN, TOTAL (test 7.4 G/DL 6.1-8.3 code = 2228) ALBUMIN (test code = 4.4 G/DL 3.5-5.2 2200) CALC GLOBULIN (test 3.0 G/DL 1.9-3.7 code = 2240) CALC A/G RATIO (test 1.5 RATIO 1.0-2.6 code = 223) BILIRUBIN, TOTAL 0.6 MG/DL See_Comment [Automated message] (test code = 2206) The syste m which generated this result transmit lucrecia reference range : <=1.2. The refe rence range was not u sed to interpret th is result as normal/abnormal . ALKALINE PHOSPHATASE 96 U/L 40-123 (test code = 2203) AST (test code = 58 U/L 9-50 H 2217) ALT (test code = 75 U/L 5-50 H 2218)
[2022-11-24] MEDS ORDERED: KETOROLAC 30 MG/ML INJ ONE (20:06)
--- NOTE | 2022-11-24 20:35 | RAD REPORT ---
EXAM DESCRIPTION: Brian Single View11/24/2022 8:14 pm CLINICAL HISTORY: Leg pain and swelling COMPARISON: 2016 FINDINGS: 8 millimeter nodular opacity overlies the right upper lobe. The remainder of the lungs appear clear of acute infiltrate. The heart is normal size IMPRESSION: 8 millimeter nodular opacity which overlies right upper lobe may represent a pulmonary n odule, rib sclerotic foci such as a bone island or confluence of ribs and vessels. A nonemergent unenhanced CT chest is recommended for further evaluation
[2022-11-24 20:49] LABS: Absolute Lymphocytes (CBC) 1.9 K/uL (0.7-4.9); Hematocrit 45.7 % (39.6-49.0); Lymphocytes % 18.5 % (15.3-44.8); MCV 101.2 fL (80-100); Platelets 228 thou/uL (152-406); RBC Red Blood Cell Count 4.51 M/uL (4.33-5.43)
[2022-11-24 20:53] LABS: Protime INR 0.95
--- NOTE | 2022-11-24 21:17 | RAD REPORT ---
EXAM DESCRIPTION: Nallely Venous Uni Ltd11/24/2022 8:40 pm CLINICAL HISTORY: Right leg pain and swelling. COMPARISON: 2014 FINDINGS: Right common femoral, greater saphenous and right posterior tibial veins are compressible and demonstrate augmentation. Doppler demonstrates good flow. Echogenic material consistent with acute thrombus is present within the mid and distal right superfic ial femoral and right popliteal veins. Veins are poorly compressible with diminished blood flow. Grayscale, color and spectral analysis performed on all vessels IMPRESSION: Acute thrombus right superficial femoral and right popliteal veins.
[2022-11-24 21:19] LABS: Albumin 3.4 g/dL (3.4-5.0); Bilirubin Direct 0.2 mg/dL (0-0.2); Bilirubin Indirect, Calculated 0.2 mg/dL (0.2-0.8); Bilirubin Total 0.4 mg/dL (0.2-1.0); Magnesium 2.2 mg/dL (1.6-2.4); Potassium 4.2 mEq/L (3.5-5.1)
--- NOTE | 2022-11-24 22:02 | RAD REPORT ---
EXAM DESCRIPTION: CT - Chest For Pe Angio - 11/24/2022 9:51 pm CLINICAL HISTORY: sob COMPARISON: 2014 TECHNIQUE: Dynamically enhanced axial 3 mm thick images of the chest were obtained during administra tion of 100 mL Isovue 370 IV contrast. Coronal and oblique reconstruction images were generated and r eviewed. Exam utilizes a protocol for optimal evaluation of pulmonary arterial tree. Maximum intensity projections 3D imaging was utilized All CT scans are performed using dose optimization technique as appropriate and may include automated exposure control or mA/KV adjustment according to patient size. FINDINGS: Thrombus is present within right upper and right lower lobe pulmonary arteries. No thrombus within the right main, left main, main or left pulmonary arteries. A thoracic aortic aneurysm is not noted. A pleural effusion is not seen. A pericardial effusion is not seen. No pulmonary infarction Fatty liver IMPRESSION: Right pulmonary emboli
--- NOTE | 2022-11-24 22:14 | ER ---
Nurse's Notes [facility] Name: Len Riddle Age: 57 yrs Sex: Male : 1965 Arrival Date: 11/24/2022 Time: 19:06 Bed 13 Private MD: Diagnosis: Acute embolism and thrombosis of unspecified deep veins of right lower extremity;Pulmonary embolism without acute cor pulmonale Presentation: 11/24 19:30 Chief complaint: Patient states: Right lower leg pain and swelling since yesterday. No kb3 hx of blood clots, not taking anticoagulants. Coronavirus screen: Vaccine status: Patient reports receiving the 2nd dose of the covid vaccine. Client denies travel out of the [place] in the last 14 days. Ebola Screen: Patient negative for fever greater than or equal to 101.5 degrees Fahrenheit, and additional compatible Ebola Virus Disease symptoms Patient denies exposure to infectious person. Patient denies travel to an Ebola-affected area in the 21 days before illness onset. Initial Sepsis Screen: Does the patient meet any 2 criteria? No. Patient's initial sepsis screen is negative. Does the patient have a suspected source of infection? No. Patient's initial sepsis screen is negative. Risk Assessment: Do you want to hurt yourself or someone else? Patient reports no desire to harm self or others. Onset of symptoms was November 23, 2022. 19:30 Method Of Arrival: Ambulatory kb3 19:30 Acuity: ISABEL 2 kb3 Triage Assessment: 19:31 General: Appears in no apparent distress. Behavior is calm, cooperative. Pain: kb3 Complains of pain in posterior aspect of right knee, right calf and right Achilles Pain does not radiate. Pain currently is 7 out of 10 on a pain scale. Quality of pain is described as pressure, sharp, Pain began 1 day ago. Historical: - Allergies: 19:31 No Known Allergies; kb3 - Home Meds: 19:31 Unknown BP medication [Active]; kb3 - PMHx: 19:31 Anxiety; Depression; enlarged prostate; insomnia; Kidney stones; Hypertensive disorder; kb3 - PSHx: 19:31 Lithotripsy; kb3 - Immunization history:: Adult Immunizations up to date. - Social history:: Smoking status: Patient denies any tobacco usage or history of. Screenin:40 [facility] ED Fall Risk Assessment (Adult) History of falling in the last 3 months, mb9 including since admission No falls in past 3 months (0 pts) Confusion or Disorientation No (0 pts) Intoxicated or Sedated No (0 pts) Impaired Gait No (0 pts) Mobility Assist Device Used No (0 pt) Altered Elimination No (0 pt) Score/Fall Risk Level 0 - 2 = Low Risk Oriented to surroundings, Maintained a safe environment, Educated pt \T\ family on fall prevention, incl call for assistance when getting out of bed. Abuse screen: Denies threats or abuse. Nutritional screening: No deficits noted. Tuberculosis screening: No symptoms or risk factors identified. Assessment: 19:39 General: Appears in no apparent distress. Behavior is calm, cooperative. Pain: mb9 Complains of pain in right leg Quality of pain is described as aching, throbbing, Pain began 2-3 days ago. Is intermittent. Neuro: Olvera Agitation-Sedation Scale (RASS): 0 - Alert and Calm Level of Consciousness is awake, alert, obeys commands, Oriented to person, place, time, situation, Appropriate for age. Cardiovascular: Denies chest pain, Heart tones S1 S2 present Patient's skin is warm and dry. Respiratory: Airway is patent Respiratory effort is even, unlabored, Respiratory pattern is regular, symmetrical, Breath sounds are clear bilaterally. Denies shortness of breath. GI: Abdomen is round non-distended, Bowel sounds present X 4 quads. Abd is soft and non tender X 4 quads. : No signs and/or symptoms were reported regarding the genitourinary system. EENT: No signs and/or symptoms were reported regarding the EENT system. Derm: Skin is pink, warm \T\ dry. Musculoskeletal: Range of motion: limited in all extremities, Swelling present in right leg. 20:41 Reassessment: No changes from previously documented assessment. Patient and/or family mb9 updated on plan of care and expected duration. Pain level reassessed. Patient is alert, oriented x 3, equal unlabored respirations, skin warm/dry/pink. 21:40 Reassessment: Patient and/or family updated on plan of care and expected duration. Pain ha1 level reassessed. Patient is alert, oriented x 3, equal unlabored respirations, skin warm/dry/pink. 22:30 Reassessment: Patient and/or family updated on plan of care and expected duration. Pain ha1 level reassessed. Patient is alert, oriented x 3, equal unlabored respirations, skin warm/dry/pink. Vital Signs: 19:30 BP 116 / 91; Pulse 96; Resp 20; Temp 98.1; Pulse Ox 100% ; Weight 108.86 kg; Height 5 kb3 ft. 9 in. ; Pain 7/10; 19:30 BP 116 / 77; Pulse 90; Resp 17 S; Pulse Ox 96% on R/A; ha1 20:30 BP 117 / 79; Pulse 86; Resp 16; Pulse Ox 97% on R/A; ha1 21:30 BP 114 / 84; Pulse 86; Resp 16 S; Pulse Ox 98% on R/A; ha1 22:30 BP 117 / 75; Pulse 87; Resp 18 S; Pulse Ox 98% on R/A; ha1 19:30 Body Mass Index 35.44 (108.86 kg, 175.26 cm) kb3 19:30 Pain Scale: Adult kb3 ED Course: 19:10 Patient arrived in ED. es 19:19 Eugene Brantley PA is PHCP. cp 19:19 Drake Luz DO is Attending Physician. cp 19:22 June Peters, DONOVAN is Primary Nurse. mb9 19:23 Arm band placed on. mb9 19:31 Triage completed. kb3 19:40 Placed in gown. Bed in low position. Call light in reach. Side rails up X 1. Client mb9 placed on continuous cardiac and pulse oximetry monitoring. NIBP monitoring applied. youth nutritional monitor on. Door closed. Noise minimized. Warm blanket given. 19:40 No provider procedures requiring assistance completed. mb9 20:00 Missed attempt(s): 22 gauge in left antecubital area. ha1 20:15 XRAY Chest (1 view) In Process Unspecified. EDMS 20:41 Basic Metabolic Panel Sent. mb9 20:41 CBC with Diff Sent. mb9 20:41 LFT's Sent. mb9 20:41 Magnesium Sent. mb9 20:41 NT PRO-BNP Sent. mb9 20:41 PT-INR Sent. mb9 20:41 Troponin HS Sent. mb9 20:41 Inserted saline lock: 22 gauge in left wrist, using aseptic technique. mb9 20:42 US Extremity Venous Unilateral Ltd In Process Unspecified. EDMS 20:42 Report given to DONOVAN Hale. mb9 21:52 CT Chest For PE Angio In Process Unspecified. EDMS 22:12 Tio Guerrero MD is Hospitalizing Provider. cp 23:24 Provided Education on: need for admit . ha1 23:24 Patient admitted, IV remains in place. ha1 Administered Medications: 20:41 Drug: Ketorolac IVP 15 mg Route: IVP; Site: left wrist; mb9 21:00 Follow up: Response: No adverse reaction; Pain is decreased ha1 22:30 Drug: Enoxaparin Sub-Q 1 mg/kg Route: Sub-Q; Site: abdomen; ha1 23:22 Follow up: Response: No adverse reaction ha1 Medication: 19:40 VIS not applicable for this client. mb9 Outcome: 22:13 Decision to Hospitalize by Provider. cp 23:22 Admitted to Med/surg accompanied by tech, via stretcher, room 220, Report called to ha1 DONOVAN Gordon 23:22 Condition: stable 23:22 Discharge instructions given to patient, family, Instructed on the need for admit, Demonstrated understanding of instructions. 23:25 Patient left the ED. ha1 Signatures: Dispatcher [employer] EDMS Kalani Yates Corey, PA PA cp Daxa Ivey, RN RN 1 Almita Moseley, RN RN thien3 June Peters RN RN mb9 Corrections: (The following items were deleted from the chart) 19:33 19:31 Home Meds: gabapentin 100 mg Oral cap 3 times per day; kb3 kb3 19:33 19:31 Home Meds: Prozac 10 mg Oral tab; kb3 kb3 19:33 19:31 Home Meds: terazosin Oral; kb3 kb3 19:33 19:31 Home Meds: Trazodone Oral; kb3 kb3
--- NOTE | 2022-11-24 22:14 | EDPHYS ---
Physician Documentation [facility] Name: Len Riddle Age: 57 yrs Sex: Male : 1965 Arrival Date: 11/24/2022 Time: 19:06 Bed 13 Private MD: ED Physician Drake Luz HPI: 11/24 20:00 This 57 yrs old Male presents to ER via Ambulatory with complaints of Leg Swelling. cp 20:00 The patient presents with pain, that is acute. The complaints affect the right lower cp leg. 20:00 Context: resulted from an unknown cause, the patient can fully bear weight, the patient cp is able to ambulate, with mild difficulty, Problem is a result from a previous injury: No. Onset: The symptoms/episode began/occurred yesterday, and became worse today. Associated signs and symptoms: Pertinent positives: calf tenderness, swelling, warmth, Pertinent negatives fever, numbness, weakness. Treatment prior to arrival includes: no previous treatment. Severity of symptoms: in the emergency department the symptoms are unchanged, despite home interventions. Historical: - Allergies: 19:31 No Known Allergies; kb3 - Home Meds: 19:31 Unknown BP medication [Active]; kb3 - PMHx: 19:31 Anxiety; Depression; enlarged prostate; insomnia; Kidney stones; Hypertensive disorder; kb3 - PSHx: 19:31 Lithotripsy; kb3 - Immunization history:: Adult Immunizations up to date. - Social history:: Smoking status: Patient denies any tobacco usage or history of. ROS: 20:05 Constitutional: Negative for body aches, chills, fever, poor PO intake. cp 20:05 MS/extremity: Positive for pain, swelling, tenderness, of the right lower leg, Negative cp for injury or acute deformity, decreased range of motion, erythema, paresthesias. 20:05 Respiratory: Positive for shortness of breath, Negative for cough, hemoptysis, wheezing.cp 20:05 Eyes: Negative for injury, pain, redness, and discharge. cp 20:05 ENT: Negative for drainage from ear(s), ear pain, sore throat, difficulty swallowing, difficulty handling secretions. 20:05 Cardiovascular: Negative for chest pain, palpitations. 20:05 Abdomen/GI: Negative for abdominal pain, nausea, vomiting, and diarrhea. 20:05 Back: Negative for injury or acute deformity, pain at rest, pain with movement. 20:05 : Negative for urinary symptoms, testicular pain 20:05 Skin: Negative for cellulitis, rash. 20:05 Neuro: Negative for altered mental status, dizziness, headache, syncope, weakness. 20:05 All other systems are negative. Exam: 20:13 ECG was reviewed by the Attending Physician. cp 20:15 Constitutional: The patient appears in no acute distress, alert, awake, cp non-diaphoretic, non-toxic, well developed, well nourished, uncomfortable. 20:15 Head/Face: Normocephalic, atraumatic. cp 20:15 Eyes: Periorbital structures: appear normal, Conjunctiva: normal, no exudate, no injection, Sclera: no appreciated abnormality, Lids and lashes: appear normal, bilaterally. 20:15 ENT: External ear(s): are unremarkable, Nose: is normal, Mouth: Lips: moist, Oral mucosa: pink and intact, moist, Posterior pharynx: is normal, airway is patent, no erythema, no exudate. 20:15 Neck: ROM/movement: is normal, is supple, without pain, no range of motions limitations. 20:15 Chest/axilla: Inspection: normal. 20:15 Cardiovascular: Rate: normal, Rhythm: regular, Edema: is not appreciated, JVD: is not appreciated. 20:15 Respiratory: the patient does not display signs of respiratory distress, Respirations: normal, no use of accessory muscles, no retractions, labored breathing, is not present, Breath sounds: are clear throughout, no decreased breath sounds, no stridor, no wheezing. 20:15 Abdomen/GI: Inspection: abdomen appears normal, Bowel sounds: active, all quadrants, Palpation: abdomen is soft and non-tender, in all quadrants. 20:15 Back: pain, is absent, ROM is normal. 20:15 Musculoskeletal/extremity: Extremities: grossly normal except: noted in the right leg: pain, swelling, tenderness, There is no evidence of decreased ROM, deformity, ecchymosis, Pulses: noted to be 2+ in the right dorsalis pedis artery, the right leg Sensation intact. 20:15 Skin: cellulitis, is not appreciated, no rash present. Vital Signs: 19:30 BP 116 / 91; Pulse 96; Resp 20; Temp 98.1; Pulse Ox 100% ; Weight 108.86 kg; Height 5 kb3 ft. 9 in. ; Pain 7/10; 19:30 BP 116 / 77; Pulse 90; Resp 17 S; Pulse Ox 96% on R/A; ha1 20:30 BP 117 / 79; Pulse 86; Resp 16; Pulse Ox 97% on R/A; ha1 21:30 BP 114 / 84; Pulse 86; Resp 16 S; Pulse Ox 98% on R/A; ha1 22:30 BP 117 / 75; Pulse 87; Resp 18 S; Pulse Ox 98% on R/A; ha1 19:30 Body Mass Index 35.44 (108.86 kg, 175.26 cm) kb3 19:30 Pain Scale: Adult kb3 MDM: 19:23 Patient medically screened. cp 22:15 Data reviewed: vital signs, nurses notes, lab test result(s), EKG, radiologic studies, cp CT scan, plain films, ultrasound. 22:15 Differential diagnosis: dvt, cellulitis, kidney disease, chf. Consideration of cp Admission/Observation Patient was admitted/placed on observation. Management of patient was discussed with the following: Hospitalist: Jose Rai NP will admit for continued treatment. I considered the following discharge prescriptions or medication management in the emergency department Medications were administered in the Emergency Department. See MAR. Independent interpretation of the following test(s) in the Emergency Department EKG: See my EKG interpretation above X-Ray: My interpretation is chest image negative for infiltrates. Counseling: I had a detailed discussion with the patient and/or guardian regarding the historical points, exam findings, and any diagnostic results supporting the discharge/admit diagnosis, lab results, radiology results, will admit for anticoagulation therapy and continued monitoring. 11/24 19:52 Order name: Basic Metabolic Panel; Complete Time: 21:54 cp 11/24 19:52 Order name: CBC with Diff; Complete Time: 21:54 cp 11/24 19:52 Order name: LFT's; Complete Time: 21:54 cp 11/24 19:52 Order name: Magnesium; Complete Time: 21:54 cp 11/24 19:52 Order name: NT PRO-BNP; Complete Time: 21:54 cp 11/24 19:52 Order name: PT-INR; Complete Time: 21:54 cp 11/24 19:52 Order name: Troponin HS; Complete Time: 21:54 cp 11/24 19:52 Order name: XRAY Chest (1 view); Complete Time: 21:54 cp 11/24 19:52 Order name: US Extremity Venous Unilateral Ltd; Complete Time: 21:54 cp 11/24 20:32 Order name: CT Chest For PE Angio; Complete Time: 22:03 cp 11/24 19:52 Order name: EKG; Complete Time: 19:53 11/24 19:52 Order name: Cardiac monitoring; Complete Time: 19:53 11/24 19:52 Order name: EKG - Nurse/Tech; Complete Time: 19:57 11/24 19:52 Order name: IV Saline Lock; Complete Time: 19:57 11/24 19:52 Order name: Labs collected and sent; Complete Time: :57 11/24 19:52 Order name: O2 Per Protocol; Complete Time: 19:53 11/24 19:52 Order name: O2 Sat Monitoring; Complete Time: 19:53 cp EC:13 Rate is 92 beats/min. Rhythm is regular. FL interval is normal. QRS interval is normal. cp QT interval is normal. T waves are Inverted in lead aVR. Interpreted by me. Reviewed by me. Administered Medications: 20:41 Drug: Ketorolac IVP 15 mg Route: IVP; Site: left wrist; mb9 21:00 Follow up: Response: No adverse reaction; Pain is decreased ha1 22:30 Drug: Enoxaparin Sub-Q 1 mg/kg Route: Sub-Q; Site: abdomen; ha1 23:22 Follow up: Response: No adverse reaction ha1 Disposition Summary: 11/24/22 22:13 Hospitalization Ordered Hospitalization Status: Inpatient Admission cp Provider: Tio Guerrero cp Location: Telemetry/MedSurg (Inpatient) cp Condition: Stable cp Problem: new cp Symptoms: have improved cp Bed/Room Type: Standard Room Assignment: 220(11/24/22 22:56) cg Diagnosis - Acute embolism and thrombosis of unspecified deep veins of right lower extremity cp - Pulmonary embolism without acute cor pulmonale cp Forms: - Medication Reconciliation Form cp - SBAR form cp - Leadership Thank You Letter cp Addendum: 11/27/2022 08:13 Co-signature as Attending Physician, Drake Luz DO I was immediately available on-site m s3 in the Emergency Department for consultation in the care of the patient. Signatures: Dispatcher [employer] Jose Pino, HAND GLOVE CLEANER-C HAND GLOVE CLEANER-Cla1 Eugene Brantley PA PA cp Garcia, Cindy, RN RN cg Drake Luz DO DO ms3 Daxa Ivey RN RN ha1 Almita Moseley RN RN kb3 June Peters RN RN mb9 Corrections: (The following items were deleted from the chart) 11/24 19:33 19:31 Home Meds: gabapentin 100 mg Oral cap 3 times per day; kb3 kb3 19:33 19:31 Home Meds: Prozac 10 mg Oral tab; kb3 kb3 19:33 19:31 Home Meds: terazosin Oral; kb3 kb3 19:33 19:31 Home Meds: Trazodone Oral; kb3 kb3 22:56 22:13 cp cg
[2022-11-24] MEDS ORDERED: ENOXAPARIN 100 MG/ML SYR SQ ONE (22:34)
--- NOTE | 2022-11-24 22:47 | P.HP ---
Certification for Inpatient Patient admitted to: Observation With expected LOS: <2 Midnights Patient will require the following post-hospital care: None Practitioner: I am a practitioner with admitting privileges, knowledge of patient current condition, hospital course, and medical plan of care. Services: Services provided to patient in accordance with Admission requirements found in Title 42 Section 412.3 of the Code of Federal Regulations Patient History Date of Service: 11/24/22 Reason for admission: DVT/PE History of Present Illness: 57-year-old male presents to the emergency department chief complaint of right lower extremity swelling. He reports he initially noted an area of swelling to his right lower extremity approximate 1 month ago which improved shortly after that and then returned approximately 2 days ago with significant worsening. He was evaluated in the emergency department the ultrasound of his right lower extremity showed acute thrombus right superficial femoral and right popliteal veins. CT PE protocol was also performed which showed thrombus present within the right upper and right lower lobe pulmonary arteries. His vital signs are stable not requiring oxygen troponin and BNP were normal no mention of heart strain on CT. Case discussed with pulmonology recommendation for Lovenox this evening. No clear evidence of the provocation for DVT. Allergies No Known Drug Allergies Allergy (Verified 10/28/14 05:23) Unknown Home Medications: Terazosin HCl 2 mg PO BEDTIME 08/21/14 Trazodone [Desyrel*] 50 mg PO BEDTIME PRN PRN 08/21/14 Ciprofloxacin HCl [Cipro] 500 mg PO DAILY #10 tablet 11/10/14 Fluoxetine HCl [Prozac] 20 mg PO TID 11/10/14 Hydrocodone Bit/Acetaminophen [[place] 10-325 Tablet] 1 each PO Q6H PRN #30 tablet 11/10/14 Tamsulosin [Flomax*] 0.4 mg PO BEDTIME #30 cap 11/10/14 Tramadol HCl [Ultram] 50 mg PO Q6HP PRN 11/10/14 - Past Medical/Surgical History Diabetic: No -: HTN -: ANXIETY -: ENLARGED PROSTATE -: abscess right knee -: bilateral kidney stents Oct 27 Psychosocial/ Personal History: Lives at home with his - Family History Father -: Hypertension - Social History Smoking Status: Never smoker Alcohol use: Yes CD- Drugs: No Caffeine use: Yes Place of Residence: Home Review of Systems 10-point ROS is otherwise unremarkable Musculoskeletal: Leg Pain Physical Examination - Physical Exam General: Alert, In no apparent distress HEENT: Atraumatic, PERRLA, Mucous membr. moist/pink, EOMI, Sclerae nonicteric Neck: Supple, 2+ carotid pulse no bruit, No LAD, Without JVD or thyroid abnormality Respiratory: Clear to auscultation bilaterally, Normal air movement Cardiovascular: Regular rate/rhythm, Normal S1 S2 Gastrointestinal: Normal bowel sounds, No tenderness Musculoskeletal: Other (RLE swelling, erythema) Integumentary: No rashes Neurological: Normal speech, Normal strength at 5/5 x4 extr, Normal tone, Normal affect Lymphatics: No axilla or inguinal lymphadenopathy - Studies Laboratory Data (last 24 hrs) 11/24/22 11/24/22 11/24/22 20:39 20:39 20:39 WBC 10.20 Hgb 16.1 Hct 45.7 Plt Count 228 PT 10.5 INR 0.95 Sodium 136 Potassium 4.2 BUN 17 Creatinine 1.28 Glucose 102 Magnesium 2.2 Total Bilirubin 0.4 AST 33 ALT 65 H Alkaline Phosphatase 75 Assessment and Plan - Plan Assessment: RLE DVT, PE Hypertension Anxiety/depression Plan: RLE DVT, PE Admits to occasionally smoking cigars, no hormone replacement therapy, no recent travel, no family history of blood clots, is reportedly mildly sedentary. Continue Lovenox. Likely discharge on NOAC. Patient does not have insurance currently. Hypertension Anxiety/depression Continue home medications. DVT PPX: Therapeutic Lovenox Code status: Full Discharge Plan: Home Plan to discharge in: 24 Hours - Advance Directives Does patient have a Living Will: No Does patient have a Durable POA for Healthcare: No - Code Status/Comfort Care Code Status Assessed: Yes (Full code) Critical Care: No Time Spent Managing Pts Care (In Minutes): 55
[2022-11-24 23:34] VITALS: O2SAT 98
[2022-11-24] MEDS ORDERED: ONDANSETRON 4 MG/2 ML VIAL IV PRN (23:51)
[2022-11-24] MEDS ORDERED: HYDROCODONE/APAP 5/325 MG TAB PO PRN (23:51)
[2022-11-25 02:03] VITALS: BMI 36.5
[2022-11-25 03:15] LABS: Absolute Lymphocytes (CBC) 2.8 K/uL (0.7-4.9); Hematocrit 41.1 % (39.6-49.0); Lymphocytes % 31.8 % (15.3-44.8); MCV 101.5 fL (80-100); MPV 8.3 fL (7.6-11.3); Platelets 216 thou/uL (152-406); RBC Red Blood Cell Count 4.05 M/uL (4.33-5.43)
[2022-11-25 03:28] LABS: Potassium 3.8 mEq/L (3.5-5.1)
[2022-11-25 05:43] VITALS: BP 121/75; TEMP 97.9
--- NOTE | 2022-11-25 08:54 | P.DS ---
Admission Date: 11/24/22 Discharge Date: 11/25/22 Disposition: ROUTINE DISCHARGE Discharge Condition: GOOD Reason for Admission: DVT/PE Consultations: 1. Pulmonology Hospital Course: DIAGNOSES: # Acute Right Superficial Femoral and Right Popliteal Deep Venous Thrombosis with Right Pulmonary Emboli # Hypertension # Anxiety # Depression # Fatty Liver # Suspected Right Upper Lobe Pulmonary Nodule (8 mm) HOSPITAL COURSE: Mr. Len Riddle is a pleasant 57 year old male with a past medical history significant for hypertension, anxiety, and depression who was admitted to the [facility] on 11/24/2022 for a DVT/PE. He was admitted to the Medicine service. Upon further evaluation, his chest x- ray revealed, "8 millimeter nodular opacity which overlies right upper lobe may represent a pulmonary nodule, rib sclerotic foci such as a bone island or confluence of ribs and vessels. A nonemergent unenhanced CT chest is recommended for further evaluation." His right lower extremity Doppler revealed, "acute thrombus right superficial femoral and right popliteal veins." His CT chest angiogram revealed, "right pulmonary emboli." Pulmonology was consulted and he was evaluated by Dr. Zheng. He has cleared him for discharge with apixaban. Incidentally, he was found to have an 8 mm pulmonary nodule and fatty liver. He was counseled on these findings and advised to follow-up with his PCP for further evaluation. He verbalized understanding and agreed to make this follow- up appointment. On 11/25/2022, he was seen on morning rounds and deemed medically stable for discharge. He was discharged with instructions to schedule follow-up appointments with his PCP ([facility]) and with Pulmonology (Dr. Zheng). He was provided a prescription for apixaban. He was given the opportunity to ask questions and reported no further questions. Furthermore, all questions were answered to the best of my ability. A copy of this discharge summary will be sent to the above providers to facilitate continuity of care. Today, I personally spent 25 minutes on his case, of which greater than 50% of the time was spent in patient education, counseling, and coordination of care as described above. Vital Signs/Physical Exam: Temp Pulse Resp BP Pulse Ox 97.9 F 69 18 121/75 94 11/25/22 04:00 11/25/22 04:00 11/25/22 04:00 11/25/22 04:00 11/25/22 04:00 General: Alert, In no apparent distress, Oriented x3 HEENT: Atraumatic, Mucous membr. moist/pink, Sclerae nonicteric Neck: JVD not distended Respiratory: Clear to auscultation bilaterally, Normal air movement Cardiovascular: No edema, Regular rate/rhythm, Normal S1 S2, No gallops, No rubs, No murmurs Gastrointestinal: Normal bowel sounds, Soft and benign, Non-distended, No tenderness, No rebound, No guarding Musculoskeletal: No clubbing Integumentary: No rashes Neurological: Normal speech, Normal affect Laboratory Data at Discharge: WBC 8.90 thou/uL (4.3-10.9) 11/25/22 02:18 Hgb 14.4 g/dL (13.6-17.9) D 11/25/22 02:18 Hct 41.1 % (39.6-49.0) 11/25/22 02:18 Plt Count 216 thou/uL (152-406) 11/25/22 02:18 PT 10.5 SECONDS (9.5-12.5) 11/24/22 20:39 INR 0.95 11/24/22 20:39 Sodium 138 mEq/L (136-145) 11/25/22 02:18 Potassium 3.8 mEq/L (3.5-5.1) 11/25/22 02:18 BUN 19 mg/dL (7-18) H 11/25/22 02:18 Creatinine 1.29 mg/dL (0.70-1.30) 11/25/22 02:18 Glucose 108 mg/dL (74-106) H 11/25/22 02:18 Magnesium 2.2 mg/dL (1.6-2.4) 11/24/22 20:39 Total Bilirubin 0.4 mg/dL (0.2-1.0) 11/24/22 20:39 AST 33 U/L (15-37) 11/24/22 20:39 ALT 65 U/L (16-61) H 11/24/22 20:39 Alkaline Phosphatase 75 U/L (45-117) 11/24/22 20:39 Home Medications: Terazosin HCl 2 mg PO BEDTIME 08/21/14 Trazodone [Desyrel*] 50 mg PO BEDTIME PRN PRN 08/21/14 Ciprofloxacin HCl [Cipro 500 MG Tablet] 500 mg PO DAILY #10 tablet 11/10/14 Fluoxetine HCl [Prozac] 20 mg PO TID 11/10/14 Hydrocodone Bit/Acetaminophen [[place] 10-325 Tablet] 1 each PO Q6H PRN #30 tablet 11/10/14 Tamsulosin [Flomax*] 0.4 mg PO BEDTIME #30 cap 11/10/14 Tramadol HCl [Ultram] 50 mg PO Q6HP PRN 11/10/14 Apixaban [Eliquis] See Rx Instructions .ROUTE .COMPLEX #70 tab 11/25/22 New Medications: Apixaban [Eliquis] See Rx Instructions .ROUTE .COMPLEX #70 tab Physician Discharge Instructions: 1. Please call and schedule a follow-up appointment with your PCP ([facility]) in 3-5 days - Your CT scan showed that you have a fatty liver. Please discuss with your PCP for further evaluation. 2. Please call and schedule a follow-up appointment with Pulmonology (Dr. Zheng) in 5-7 days - There was an 8 mm spot on your right lung, which was found on your chest x- ray. As we discussed, please follow-up with Dr. Zheng for further evaluation. Medication changes: 1. Please take apixaban (Eliquis) 10 mg two times per day for 7 days 2. Starting on 12/02/2022, please take apixaban (Eliquis) 5 mg two times per day You have been given a 1 month prescription for these medications. Please follow- up with your PCP for medication refills/adjustments Diet: AHA Activity: Ad alexis Followup: Manolo Zheng MD [ACTIVE - CAN ADMIT] - NONE,NONE [Primary Care Provider] - Time spent managing pt's care (in minutes): 25
[2022-11-25] MEDS ORDERED: Enoxaparin 120 MG/0.8 ML SYR SQ SCH (09:00)
[2022-11-25] MEDS ORDERED: APIXABAN 5 MG TABLET PO SCH (10:58)
--- NOTE | 2022-11-25 11:00 | P.CNS ---
Date of Consult: 11/25/22 Reason for Consult: DVT pulmonary embolism Chief Complaint: DVT/PE History of Present Illness: Patient is 57 years of age no past medical history started complaining of pain and swelling in his right leg for the past 3 days denies any shortness of breath and it appeared in the emergency room was diagnosed with right-sided lower extremity DVT in addition to pulmonary emboli he is currently asymptomatic Allergies No Known Drug Allergies Allergy (Verified 10/28/14 05:23) Unknown Home Medications: Terazosin HCl 2 mg PO BEDTIME 08/21/14 Trazodone [Desyrel*] 50 mg PO BEDTIME PRN PRN 08/21/14 Ciprofloxacin HCl [Cipro 500 MG Tablet] 500 mg PO DAILY #10 tablet 11/10/14 Fluoxetine HCl [Prozac] 20 mg PO TID 11/10/14 Hydrocodone Bit/Acetaminophen [[place] 10-325 Tablet] 1 each PO Q6H PRN #30 tablet 11/10/14 Tamsulosin [Flomax*] 0.4 mg PO BEDTIME #30 cap 11/10/14 Tramadol HCl [Ultram] 50 mg PO Q6HP PRN 11/10/14 Apixaban [Eliquis] See Rx Instructions .ROUTE .COMPLEX #70 tab 11/25/22 - Past Medical/Surgical History Diabetic: No -: HTN -: ANXIETY -: ENLARGED PROSTATE -: abscess right knee -: bilateral kidney stents Oct 27 Psychosocial/ Personal History: Lives at home with his - Family History Father Medical History: Hypertension - Social History Smoking Status: Former smoker Alcohol use: Yes CD- Drugs: No Caffeine use: Yes Place of Residence: Home Review of Systems Unremarkable Physical Examination Temp Pulse Resp BP Pulse Ox 97.9 F 69 18 121/75 94 11/25/22 04:00 11/25/22 04:00 11/25/22 04:00 11/25/22 04:00 11/25/22 04:00 General: Alert, Oriented x3 Neck: Supple Respiratory: Clear to auscultation bilaterally (Right lower extremity edema) Cardiovascular: Edema Gastrointestinal: Normal bowel sounds, Soft and benign Laboratory Data (last 24 hrs) 11/24/22 11/24/22 11/24/22 20:39 20:39 20:39 WBC 10.20 Hgb 16.1 Hct 45.7 Plt Count 228 PT 10.5 INR 0.95 Sodium 136 Potassium 4.2 BUN 17 Creatinine 1.28 Glucose 102 Magnesium 2.2 Total Bilirubin 0.4 AST 33 ALT 65 H Alkaline Phosphatase 75 - Problems (1) Deep vein thrombosis (DVT) with pulmonary embolism present on admission Current Visit: Yes Status: Acute Plan: Patient is 57 years of age admitted with idiopathic right-sided DVT and pulmonary embolism precipitating factors no risk factors present either currently asymptomatic hemodynamically stable can be discharged home on anticoagulation instructed him will need at least 3 to 6 months of anticoagulation possibly indefinite he is to follow-up with me if needed
--- NOTE | 2022-11-27 19:10 | EKG ---
Test Date: 2022-11-24 Test Time: 20:07:13 Safety Leader: JASVIR MEASUREMENT RESULTS: Intervals: Rate: 92 ME: 166 QRSD: 88 QT: 352 QTc: 435 Rosman: P: 50 ME: 166 QRS: 28 T: 53 INTERPRETIVE STATEMENTS: Normal sinus rhythm Normal ECG Compared to ECG 07/12/2003 15:38:00 No significant changes Electronically Signed On 11-27-22 19:06:55 CDT by Leonard Hermosillo
== END 2022-11-25 13:10 | disposition home or self-care (01) ==
LOC: ER 19:06 → ERHOLD 22:36 → 2ND 23:01
PROVIDERS: ADMIT Internal Medicine; ATTEND Internal Medicine
DX: I82.411 Acute embolism and thrombosis of right femoral vein (principal); I82.431 Acute embolism and thrombosis of right popliteal vein; I26.99 Other pulmonary embolism without acute cor pulmonale; I10 Essential (primary) hypertension; F41.9 Anxiety disorder, unspecified; F32.A Depression, unspecified; K76.0 Fatty (change of) liver, not elsewhere classified
CPT/HCPCS: 36415; 71045; 71275; 80048; 80076; 83735; 83880; 84484; 85025; 85610; 93005; 93971; 96372; 96374; 99285; G0378; J1650; Q9967

== ENCOUNTER 2023-09-15 13:36 | Emergency (ER) | payer SELFPAY ==
--- OUTSIDE RECORDS SUMMARY | 2023-09-15 13:39 | XMS REPORT | Continuity of Care Document ---
Author Name Unknown Address [address] [facility] [address] [place] [id number] [facility] thconnect Address [address] [facility] [address] [place] [address] Care Team Providers Care Opener Name Role Phone Collette Cat Primary Care Physician Medications Ordered Medication Name Filled Medication Name Start Date Stop Date Current Medication? Ordering Clinician Indication Dosage Frequency Signature (SIG) Comments Components Source lisinopril 10 mg tablet 09-02 00:00: 00 Yes 1mg Farhad Berumen Zoloft 25 mg tablet 24 00:00: 00 Yes 1mg Farhadeddie Berumen Eliquis 5 mg tablet 624 00:00: 00 Yes 1mg aFrhad Berumen trazodone 50 mg tablet 24 00:00: 00 Yes 12mg Farhad Berumen TAKE 1 TABLET BY MOUTH TWICE A DAY 2022-03 0-11 00:00: 00 Yes 5 Farhad Siena Berumen Eliquis 5 mg tablet 9-16 00:00: 00 Yes mg Farhad Berumen TAKE 1 CAPSULE EVERY 8 HOURS. 8-31 00:00: 00 02-08 00:00 :00 No 500 Farhad Siena Berumen TAKE 1 TABLET DAILY. 7-17 00:00: 00 02-08 00:00 :00 No 10 Farhad Siena Berumen TAKE 1 TABLET DAILY. 09-08 00:00: 00 02-08 00:00 :00 No 20 Farhad Siena Berumen INSTILL 4 DROPS IN THE AFFECTED EAR(S) TWICE DAILY 09-08 00:00: 00 02-08 00:00 :00 No 301 Farhad Siena Berumen TAKE 1 TABLET BY MOUTH ONCE DAILY WITH FOOD 2021-03 00:00: 00 Yes Farhad Berumen TAKE 1 TABLET BY MOUTH EVERY 12 HOURS 2021-03 00:00: 00 Yes Farhad Berumen TAKE 1 CAPSULE DAILY EVERY MORNING BEFORE BREAKFAST. 2021-03 00:00: 00 02-08 00:00 :00 No Farhad Berumen Dose Unknown 09-10 00:00: 00 Yes Farhad Berumen Dose Unknown 09-10 00:00: 00 Yes Farhad Berumen Dose Unknown 09-10 00:00: 00 Yes Farhad Berumen Dose Unknown 08-22 00:00: 00 Yes Farhad Berumen Dose Unknown 2020-03 00:00: 00 Yes Farhad Berumen trazodone 50 mg tablet 2020-03 00:00: 00 Yes 1mg Farhad Berumen gabapentin 100 mg capsule 2020-03 00:00: 00 Yes 1mg Farhad Berumen Immunizations Ordered Immunization Name Filled Immunization Name Date Status Comments Source Moderna COVID-19 Vaccine Moderna COVID-19 Vaccine 2020-07-16 00:00:00 Completed Farhad Berumen Moderna COVID-19 Vaccine Moderna COVID-19 Vaccine 2020-06-16 00:00:00 Completed Farhad Berumen Vital Signs Vital Name Observation Time Observation Value Comments S ource BP Systolic 2023-09-03 15:50:00 126 mm[Hg] Derick Berumen BP Diastolic 2023-09-03 15:50:00 86 mm[Hg] Agustin Berumen Weight Measured 2023-09-03 15:50:00 245.40 pounds Farhad Berumen Height Measured 2023-09-03 15:50:00 67.00 inches Farhad Berumen Body Temperature 2023-09-03 15:50:00 98.40 degrees Farhad Berumen Heart Rate 2023-09-03 15:50:00 79.00 /min Loren Berumen Respiratory Rate 2023-09-03 15:50:00 16.00 /min Farhad Berumen BP Systolic 2022-12-20 16:03:00 115 mm[Hg] Derick Berumen BP Diastolic 2022-12-20 16:03:00 82 mm[Hg] Agustin phen F Ata Weight Measured 2022-12-20 16:03:00 246.40 pounds Farhad F Ata Height Measured 2022-12-20 16:03:00 67.00 inches Farhad F Ata Body Temperature 2022-12-20 16:03:00 96.40 degrees Farhad F Ata Heart Rate 2022-12-20 16:03:00 73.00 /min Loren en F Ata Respiratory Rate 2022-12-20 16:03:00 Farhad F Ata BP Systolic 2022-12-06 15:49:00 128 mm[Hg] Step hen F Ata BP Diastolic 2022-12-06 15:49:00 87 mm[Hg] Agustin phen F Ata Weight Measured 2022-12-06 15:49:00 245.80 pounds Farhad F Ata Height Measured 2022-12-06 15:49:00 67.00 inches Farhad F Ata Body Temperature 2022-12-06 15:49:00 98.10 degrees Farhad F Ata Heart Rate 2022-12-06 15:49:00 108.00 /min Step hen F Ata Respiratory Rate 2022-12-06 15:49:00 20.00 /min Farhad F Ata BP Systolic 2022-11-09 18:00:00 119 mm[Hg] Step hen F Ata BP Diastolic 2022-11-09 18:00:00 83 mm[Hg] Agustin phen F Ata Weight Measured 2022-11-09 18:00:00 240.40 pounds Farhad F Ata Height Measured 2022-11-09 18:00:00 67.00 inches Farhad F Ata Body Temperature 2022-11-09 18:00:00 98.20 degrees Farhad F Ata Heart Rate 2022-11-09 18:00:00 92.00 /min Loren en F Ata Respiratory Rate 2022-11-09 18:00:00 18.00 /min Farhad F Ata BP Systolic 2022-09-25 13:21:00 107 mm[Hg] Step hen F Ata BP Diastolic 2022-09-25 13:21:00 74 mm[Hg] Agustin phen F Ata Weight Measured 2022-09-25 13:21:00 241.20 pounds Farhad F Ata Height Measured 2022-09-25 13:21:00 67.00 inches Farhad F Ata Body Temperature 2022-09-25 13:21:00 98.00 degrees Farhad F Ata Heart Rate 2022-09-25 13:21:00 91.00 /min Loren en F Ata Respiratory Rate 2022-09-25 13:21:00 Farhad F Ata BP Systolic 2022-09-08 16:52:00 151 mm[Hg] Step hen F Ata BP Diastolic 2022-09-08 16:52:00 92 mm[Hg] Agustin phen F Ata Weight Measured 2022-09-08 16:52:00 244.80 pounds Farhad F Ata Height Measured 2022-09-08 16:52:00 67.00 inches Farhad F Ata Body Temperature 2022-09-08 16:52:00 98.20 degrees Farhad F Ata Heart Rate 2022-09-08 16:52:00 84.00 /min Loren en F Ata Respiratory Rate 2022-09-08 16:52:00 18.00 /min Farhad F Ata BP Systolic 2022-02-20 17:25:00 150 mm[Hg] Step hen F Ata BP Diastolic 2022-02-20 17:25:00 101 mm[Hg] Agustin phen F Ata Weight Measured 2022-02-20 17:25:00 248.00 pounds Farhad F Ata Height Measured 2022-02-20 17:25:00 67.00 inches Farhad F Ata Body Temperature 2022-02-20 17:25:00 98.20 degrees Farhad F Ata Heart Rate 2022-02-20 17:25:00 100.00 /min Step hen F Ata Respiratory Rate 2022-02-20 17:25:00 18.00 /min Farhad F Ata BP Diastolic 2022-02-03 14:06:00 76 mm[Hg] Agustin phen F Ata Weight Measured 2022-02-03 14:06:00 248.60 pounds Farhad F Ata Height Measured 2022-02-03 14:06:00 67.00 inches Farhad F Ata Body Temperature 2022-02-03 14:06:00 98.60 degrees Farhad F Ata Heart Rate 2022-02-03 14:06:00 87.00 /min Loren en F Ata Respiratory Rate 2022-02-03 14:06:00 18.00 /min Farhad F Ata BP Systolic 2022-02-03 14:06:00 152 mm[Hg] Step hen F Ata BP Systolic 2021-02-14 16:35:00 122 mm[Hg] Step hen F Ata BP Diastolic 2021-02-14 16:35:00 74 mm[Hg] Agustin phen F Ata Weight Measured 2021-02-14 16:35:00 235.40 pounds Farhad F Ata Height Measured 2021-02-14 16:35:00 67.00 inches Farhad F Ata Body Temperature 2021-02-14 16:35:00 98.10 degrees Farhad F Ata Heart Rate 2021-02-14 16:35:00 83.00 /min Loren en F Ata Respiratory Rate 2021-02-14 16:35:00 Farhad F Ata BP Systolic 2021-02-08 13:51:00 146 mm[Hg] Step hen F Ata BP Diastolic 2021-02-08 13:51:00 97 mm[Hg] Agustin phen F Ata Weight Measured 2021-02-08 13:51:00 233.60 pounds Farhadeddie Berumen Height Measured 2021-02-08 13:51:00 67.00 inches Farhad Berumen Body Temperature 2021-02-08 13:51:00 98.10 degrees Farhad Berumen Heart Rate 2021-02-08 13:51:00 86.00 /min Loren en Siena Ata Respiratory Rate 2021-02-08 13:51:00 Farhad Berumen Encounters Start Date/Time End Date/Time Encounter Type Admission Type Attending [facility] Care Department Encounter ID Source 2023-09-03 15:39:35 2023-09-03 15:39:35 Outpatient [facility] [id number] Farhad Berumen 2023-09-03 00:00:00 2023-09-03 00:00:00 Outpatient Visit [facility] [id number] Farhad Berumen 2023-08-28 14:48:34 2023-08-28 14:48:34 Outpatient [facility] [id number] Farhad Berumen 2022-12-20 15:40:38 2022-12-20 15:40:38 Outpatient [facility] [id number] Farhad Berumen 2022-12-06 15:34:30 2022-12-06 15:34:30 Outpatient [facility] [id number] Farhad Berumen 2022-11-10 10:55:06 2022-11-10 10:55:06 Outpatient [facility] [id number] Farhad Berumen 2022-11-09 17:06:19 2022-11-09 17:06:19 Outpatient [facility] [id number] Farhad Berumen 2022-09-25 13:16:51 2022-09-25 13:16:51 Outpatient [facility] [id number] Farhad Berumen 2022-09-08 16:42:53 2022-09-08 16:42:53 Outpatient [facility] [id number] Farhad Berumen 2022-06-26 14:13:43 2022-06-26 14:13:43 Outpatient [facility] [id number] Farhad Berumen 2022-02-20 17:17:11 2022-02-20 17:17:11 Outpatient [facility] Farhad Berumen 2022-02-03 13:57:40 2022-02-03 13:57:40 Outpatient [facility] Farhad Berumen Results Test Description Test Time Test Comments Results Result Co mments Source LIPID [id number] 15:20:36* Test Item Value Reference Range Interpretation Comme nts CHOLESTEROL (test code = 2210) 245 MG/DL <200 H TRIGLYCERIDES (test code = 2232) 149 MG/DL <150 HDL CHOLESTEROL (test code = 2220) 71 MG/DL >39 CALC LDL CHOL (test code = 2237) 146 MG/DL <100 H NOTE: CALCULATED LDL IS BASED ON JADEN-EVANS METHOD WHICHINCLUDES ADJUSTABLE TRIGLYCERIDE:VLDL CHOLESTEROL RATIO.THIS FACTOR VARIES BY MEASURED TRIGLYCERIDE AND NON-HDLCHOLESTEROL CONCENTRATIONS WITH INCREASED CALCULATED LDL SEENIN HIGHER TRIGLYCERIDE OR LOWER NON-HDL SPECIMENS. FOR MOREINFORMATION, SEE CLIENT ANNOUNCEMENT AT [email or web address] RISK RATIO LDL/HDL (test code = 2238) 2.06 RATIO <3.55 HEPATITIS PANEL, [id number] 06:58:01* Test Item Value Reference Range Interpretation Comme nts HEPATITIS A IgM (test code = 65538) NON-REACTIVE NON-REACTIVE HEPATITIS B CORE IgM (test code = 4644) NON-REACTIVE NON-REACTIVE HEPATITIS B SURF AG (test code = 2739) NON-REACTIVE NON-REACTIVE HEPATITIS C ANTIBODY (test code = 4675) NON-REACTIVE NON-REACTIVE INTERPRETATION HEPATITIS A: (test code = 2552) (NOTE) Hepatitis A serology shows no evidence of acute hepatitis A. INTERPRETATION HEPATITIS B: (test code = 05732) (NOTE) Hepatitis B serology shows no evidence of acute hepatitis B andno indication of exposure to hepatitis B virus in the previous david eight months. INTERPRETATION HEPATITIS C: (test code = 01107) (NOTE) Hepatitis C serology shows no evidence of exposure to hepatitisC virus at this time. It can take up to 12 months after exposure tothe hepatitis C virus for antibodies to become detectable in the blood in certain patients. HIV 1/2 4TH GEN, RFLX [id number] 06:58:01* Test Item Value Reference Range Interpretation Comme nts HIV 1/2 4TH GEN, RFLX CONF (test code = 3514) NON-REACTIVE NON-REACTIVE UNLESS OTHERWISE INDICATED, ALL TESTING PERFORMED AT [facility] [address] [place] [address] CORING MACHINE OPERATOR: PAMELA HARVEY M.D. CLIA NUMBER [id number] [facility] [place]. [id number] HEMOGLOBIN [id number] 04:21:39* Test Item Value Reference Range Interpretation Comme nts HEMOGLOBIN A1c (test code = 24973) 5.3 % 4.2-5.6 CBC W/AUTO DIFF WITH [id number] 03:19:43* Test Item Value Reference Range Interpretation Comme nts WBC (test code = 1001) 9.5 K/UL 3.5-11.0 RBC (test code = 1002) 5.17 M/UL 4.50-6.10 HEMOGLOBIN (test code = 1003) 16.4 G/DL 13.5-17.0 HEMATOCRIT (test code = 1004) 48.5 % 40.0-51.0 MCV (test code = 1005) 93.8 fL 80.0-99.0 MCH (test code = 1006) 31.7 PG 25.0-33.0 MCHC (test code = 1007) 33.8 G/DL 31.0-36.0 RDW (test code = 1038) 13.1 % 11.5-15.0 NEUTROPHILS (test code = 1008) 62.9 % LYMPHOCYTES (test code = 1010) 26.5 % MONOCYTES (test code = 1011) 6.5 % EOSINOPHILS (test code = 1012) 2.8 % BASOPHILS (test code = 1013) 0.6 % IMMATURE GRANULOCYTES (test code = 1036) 0.7 % NUCLEATED RBCS (test code = 1065) 0.0 /100 WBC'S See_Comment [Automated messa ge] The system which generated this result transmitted reference range: 0.0. The reference range was not used to interpret this result as normal/abnormal. PLATELET COUNT (test code = 1015) 295 K/UL 130-400 ABSOLUTE NEUTROPHILS (test code = 1066) 5.95 K/UL 1.50-7.50 ABSOLUTE LYMPHOCYTES (test code = 1067) 2.50 K/UL 1.00-4.00 ABSOLUTE MONOCYTES (test code = 1068) 0.61 K/UL 0.20-1.00 ABSOLUTE EOSINOPHILS (test code = 1040) 0.26 K/UL 0.00-0.50 ABSOLUTE BASOPHILS (test code = 1069) 0.06 K/UL 0.00-0.20 ABS IMMATURE GRANULOCYTES (test code = 1020) 0.07 K/UL 0.00-0.10 ABS NUCLEATED RBCS (test code = 97885) 0.00 K/UL 0.00-0.11 SEDIMENTATION [id number] 07:37:11* Test Item Value Reference Range Interpretation Comme nts SEDIMENTATION RATE (test code = 1017) 2 MM/HOUR 0-15 UNLESS OTHERW ISE INDICATED, ALL TESTING PERFORMED AT [facility] [address] [place] [address] CORING MACHINE OPERATOR: PAMELA HARVEY M.D. CLIA NUMBER [id number] [place]. [id number] CBC W/AUTO DIFF WITH [id number] 07:35:18* Test Item Value Reference Range Interpretation Comme nts WBC (test code = 1001) 6.8 K/UL 3.5-11.0 RBC (test code = 1002) 5.01 M/UL 4.50-6.10 HEMOGLOBIN (test code = 1003) 17.2 G/DL 13.5-17.0 H HEMATOCRIT (test code = 1004) 49.7 % 40.0-51.0 MCV (test code = 1005) 99.2 fL 80.0-99.0 H MCH (test code = 1006) 34.3 PG 25.0-33.0 H MCHC (test code = 1007) 34.6 G/DL 31.0-36.0 RDW (test code = 1038) 11.8 % 11.5-15.0 NEUTROPHILS (test code = 1008) 51.4 % LYMPHOCYTES (test code = 1010) 35.4 % MONOCYTES (test code = 1011) 7.9 % EOSINOPHILS (test code = 1012) 3.7 % BASOPHILS (test code = 1013) 0.9 % IMMATURE GRANULOCYTES (test code = 1036) 0.7 % NUCLEATED RBCS (test code = 1065) 0.0 /100 WBC'S See_Comment [Automated messa ge] The system which generated this result transmitted reference range: 0.0. The reference range was not used to interpret this result as normal/abnormal. PLATELET COUNT (test code = 1015) 271 K/UL 130-400 ABSOLUTE NEUTROPHILS (test code = 1066) 3.49 K/UL 1.50-7.50 ABSOLUTE LYMPHOCYTES (test code = 1067) 2.41 K/UL 1.00-4.00 ABSOLUTE MONOCYTES (test code = 1068) 0.54 K/UL 0.20-1.00 ABSOLUTE EOSINOPHILS (test code = 1040) 0.25 K/UL 0.00-0.50 ABSOLUTE BASOPHILS (test code = 1069) 0.06 K/UL 0.00-0.20 ABS IMMATURE GRANULOCYTES (test code = 1020) 0.05 K/UL 0.00-0.10 ABS NUCLEATED RBCS (test code = 86216) 0.00 K/UL 0.00-0.11 COMPREHENSIVE METABOLIC [id number] 05:07:17* Test Item Value Reference Range Interpretation Comme nts GLUCOSE (test code = 2217) 100 MG/DL 70-99 H BUN (test code = 2208) 18 MG/DL 6-20 CREATININE (test code = 2213) 1.19 MG/DL 0.80-1.40 eGFR (2020 CKD-EPI) (test code = ) 70 ML/MIN/1.73 >60 CALC BUN/CREAT (test code = 2234) 15 RATIO 6-28 SODIUM (test code = 2230) 140 MEQ/L 133-146 POTASSIUM (test code = 2227) 5.0 MEQ/L 3.5-5.4 CHLORIDE (test code = 2214) 103 MEQ/L 95-107 CARBON DIOXIDE (test code = 2205) 26 MEQ/L 19-31 CALCIUM (test code = 2208) 9.6 MG/DL 8.5-10.5 PROTEIN, TOTAL (test code = 2228) 7.4 G/DL 6.1-8.3 ALBUMIN (test code = 2200) 4.4 G/DL 3.5-5.2 CALC GLOBULIN (test code = 2239) 3.0 G/DL 1.9-3.7 CALC A/G RATIO (test code = 2233) 1.5 RATIO 1.0-2.6 BILIRUBIN, TOTAL (test code = 2206) 0.6 MG/DL See_Comment [Automated me ssage] The system which generated this result transmitted reference range: <=1.2. The reference range was not used to interpret this result as normal/abnormal. ALKALINE PHOSPHATASE (test code = 2203) 96 U/L 40-123 AST (test code = 2217) 58 U/L 9-50 H ALT (test code = 2218) 75 U/L 5-50 H CBC W/AUTO [id number] 00:00:00* Test Item Value Reference Range Interpretation Comme nts WBC (test code = 1001) 6.8 K/UL RBC (test code = 1002) 5.01 M/UL HEMOGLOBIN (test code = 1003) 17.2 G/DL HEMATOCRIT (test code = 1004) 49.7 % MCV (test code = 1005) 99.2 fL MCH (test code = 1006) 34.3 PG MCHC (test code = 1007) 34.6 G/DL RDW (test code = 1038) 11.8 % NEUTROPHILS (test code = 1008) 51.4 % LYMPHOCYTES (test code = 1010) 35.4 % MONOCYTES (test code = 1011) 7.9 % EOSINOPHILS (test code = 1012) 3.7 % BASOPHILS (test code = 1013) 0.9 % IMMATURE GRANULOCYTES (test code = 1036) 0.7 % NUCLEATED RBCS (test code = 1065) 0.0 /100WBC'S PLATELET COUNT (test code = 1015) 271 K/UL ABSOLUTE NEUTROPHILS (test c ode = 1066) 3.49 K/UL ABSOLUTE LYMPHOCYTES (test c ode = 1067) 2.41 K/UL ABSOLUTE MONOCYTES (test cod e = 1068) 0.54 K/UL ABSOLUTE EOSINOPHILS (test c ode = 1040) 0.25 K/UL ABSOLUTE BASOPHILS (test cod e = 1069) 0.06 K/UL ABS IMMATURE GRANULOCYTES (t est code = 1020) 0.05 K/UL ABS NUCLEATED RBCS (test cod e = 02505) 0.00 K/UL Farhad BerumenCOMPREHENSIVE METABOLIC [id number] 00:00:00* Test Item Value Reference Range Interpretation Comme nts GLUCOSE (test code = 2217) 100 MG/DL BUN (test code = 2208) 18 MG/DL CREATININE (test code = 2214) 1.19 MG/DL eGFR (2020 CKD-EPI) (test co de = 14614) 70 ML/MIN/1.73 CALC BUN/CREAT (test code = 2235) 15 RATIO SODIUM (test code = 2231) 140 MEQ/L POTASSIUM (test code = 2228) 5.0 MEQ/L CHLORIDE (test code = 2215) 103 MEQ/L CARBON DIOXIDE (test code = 2206) 26 MEQ/L CALCIUM (test code = 2209) 9.6 MG/DL PROTEIN, TOTAL (test code = 2229) 7.4 G/DL ALBUMIN (test code = 2201) 4.4 G/DL CALC GLOBULIN (test code = 2240) 3.0 G/DL CALC A/G RATIO (test code = 2234) 1.5 RATIO BILIRUBIN, TOTAL (test code = 2207) 0.6 MG/DL ALKALINE PHOSPHATASE (test code = 2204) 96 U/L AST (test code = 2218) 58 U/L ALT (test code = 2219) 75 U/L Farhad BerumenSEDIMENTATION [id number] 00:00:00* Test Item Value Reference Range Interpretation Comme nts SEDIMENTATION RATE (test cod e = 1017) 2 MM/HOUR Farhad BerumenCULTURE, [id number] 00:00:00* Test Item Value Reference Range Interpretation Comme nts CULTURE, URINE (test code = 39964) SPECIMEN NUMBER: [id number] Farhad BerumenSURGICAL PATHOLOGY [id number] 00:00:00* Test Item Value Reference Range Interpretation Comme nts DIAGNOSIS: (test code = 8200) (NOTE) MICROSCOPIC DESCRIPTION: (te st code = 8210) (NOTE) CLINICAL DATA: (test code = 8401) (NOTE) GROSS DESCRIPTION: (test code = 8220) (NOTE) PATHOLOGIST: (test code = 8250) (NOTE) CPT: (test code = 8400) (NOTE) Farhad Berumen Notes Date/Time Note Provider Source 2023-09-03 00:00:00 [id number] T00:00:00+ + +| Plan Activity | Plan Date |+ =========+ +| order covid-19 testing | 2020-12-31 || continue self-quarantine | || await result | || monitor for symptoms | || continue to follow local guidelines and recommendations with regarding to | || social distancing and facial covering. | || ER precaution for respiratory distress | |+ ---------+ +| weight and height disproportionate | 2021-02-08 || Obesity Class II | || Therapeutic lifestyle changes required | |+ ---------+ +| Daily activity recommended. | 2022-12-06 |+ ---------+ +| Recommend healthy eating with foods from a variety of food groups, appropriate | 2022-12-06 || portion sizes, and few sugary snacks/drinks. | |+ ---------+ +| joy modi | 2021-02-14 |+ ---------+ +| COVID booster today | 2021-02-08 |+ ---------+ +| Shave biopsy | 2021-02-14 |+ ---------+ +| increase physical activity | 2022-12-06 |+ ---------+ +| smoking cessation | 2022-02-03 |+ ---------+ +| UA-traced of blood and small leukocyte. urine culture pending | 2022-02-03 || rx macrobid BID for 7 days until culture pending | || Rx antibiotics. Educate on staying well hydrated, urinate after sexual | || activity, take showers instead of baths, minimize douching, sprays, or powders | || in genital areas. Wipe front to back | |+ ---------+ +| rx omeprazole | 2022-02-03 || | || Avoid spicy foods, acidic foods, and high fat and fried foods | || Take PPI | || Avoid eating <2 hours before bedtime | |+ ---------+ +| rx Ciprodex. RTO in a week if no improvement | 2022-02-03 || Avoid prolonged water exposure to affected area | |+ ---------+ +| Labs: CMP, lipid | 2022-09-08 || Refill lisinopril 10 mg | || Begin checking BP at home and keep log to bring to next clinic visit. | || DASH diet, Sodium reduction <2.4 g/day | || Weight reduction, Exercise 150 mins/wk | || Limit alcohol and caffeine consumption, Smoking cessation | |+ ---------+ +| CBC,CMP, ESR | 2022-09-08 || r/o infection vs GCA vs Temporal arteritis | || prescribed amoxicillin and order MRI to r/o other etiologies | || referral already in place for maxofacial surgeon | || ER precautions | |+ ---------+ +| increase physical activity | 2022-09-25 |+ ---------+ +| Refill Eliquis 5 mg BID for 3-6 months | 2022-12-06 || f/u with vascular 3 months | || RTc if symptoms worsen or persist | |+ ---------+ +| Refill Eliquis 5 mg BID for 3-6 months | 2022-12-06 || f/u with vascular 3 months | |+ ---------+ +| Follow discharge summary | 2022-12-06 || RTC if symptoms worsen or persist | |+ ---------+ +| CBC, CMP | 2022-12-06 || await results | |+ ---------+ +| CMP | 2022-12-21 |+ ---------+ +| Labs: CBC ,CMP , HgBA1C , Lipids , hepatitis panel , HIV | 2023-09-03 || Recommend yearly flu and Tdap every 10 years | || RTO pending results | || Advised continue with dental cleanings every 6 months and and yearly eye exams | |+ ---------+ +| refilled Zoloft denied SI/HI | 2023-09-03 || FU with [facility] | |+ ---------+ +| refilled Zoloft denied SI/HI | 2023-09-03 || FU with [facility] | |+ ---------+ +| refilled eliquis 5 mg BID | 2023-09-03 |+ ---------+ +[id number] of TreatmentLNCARE PLANTXTS|[id number] for patient [id number] Section NarrativeNARRATIVEFormatted C-CDA narrative textSFAStsuzi Duckworth [facility]2024-06-25T00:00:00 Farhad Frederick [facility]"
[2023-09-15] MEDS ORDERED: dexAMETHasone 10 MG/ML VIAL ONE (14:35)
[2023-09-15] MEDS ORDERED: MORPHINE 4 MG/ML SYR ONE (14:36)
--- NOTE | 2023-09-15 14:51 | ER ---
Nurse's Notes [facility] Name: Len Riddle Age: 58 yrs Sex: Male : 1965 Arrival Date: 09/15/2023 Time: 13:36 Bed 17 Private MD: Diagnosis: Low back pain;Muscle spasm of back Presentation: 09/14 14:04 Chief complaint: Patient states: L low back pain that radiates to L leg after moving ph something heavy, hx of lower back injury. Coronavirus screen: Vaccine status: Patient reports receiving the 2nd dose of the covid vaccine. Ebola Screen: No symptoms or risks identified at this time. Initial Sepsis Screen: Does the patient meet any 2 criteria? No. Patient's initial sepsis screen is negative. Does the patient have a suspected source of infection? No. Patient's initial sepsis screen is negative. Risk Assessment: Do you want to hurt yourself or someone else? Patient reports no desire to harm self or others. Onset of symptoms was September 15, 2023. 14:04 Method Of Arrival: Ambulatory ph 14:04 Acuity: ISABEL 4 Triage Assessment: 14:05 General: Appears in no apparent distress. Behavior is calm, cooperative. Pain: ph Complains of pain in left low back Pain radiates to left leg. Neuro: [place]a Agitation-Sedation Scale (RASS): 0 - Alert and Calm Level of Consciousness is awake, alert, obeys commands, Oriented to person, place, time, situation. Musculoskeletal: Circulation, motion, and sensation intact. Range of motion: intact in all extremities. Historical: - Allergies: 14:05 No Known Drug Allergies; ph - PMHx: 14:05 Anxiety; Depression; enlarged prostate; Hypertensive disorder; insomnia; Kidney stones; ph - PSHx: 14:05 Lithotripsy; ph - Immunization history:: Adult Immunizations unknown. - Infectious Disease History:: Denies. - Social history:: Smoking status: Patient denies any tobacco usage or history of. - Family history:: not pertinent. - Hospitalizations: : No recent hospitalization is reported. Screenin:06 [facility] ED Fall Risk Assessment (Adult) History of falling in the last 3 months, ph including since admission No falls in past 3 months (0 pts) Confusion or Disorientation No (0 pts) Intoxicated or Sedated No (0 pts) Impaired Gait No (0 pts) Mobility Assist Device Used No (0 pt) Altered Elimination No (0 pt) Score/Fall Risk Level 0 - 2 = Low Risk Oriented to surroundings, Maintained a safe environment, Hourly rounding (assess needs \T\ fall precautionary measures) done. Abuse screen: Denies threats or abuse. Denies injuries from another. Nutritional screening: No deficits noted. Tuberculosis screening: No symptoms or risk factors identified. Assessment: 14:00 General: Appears in no apparent distress. uncomfortable, Behavior is calm, cooperative. rs5 Pain: Complains of pain in back Pain currently is 8 out of 10 on a pain scale. 14:00 Neuro: Level of Consciousness is awake, alert, obeys commands, Oriented to person, rs5 place, time, situation. Cardiovascular: Patient's skin is warm and dry. Respiratory: Airway is patent Respiratory effort is even, unlabored, Respiratory pattern is regular, symmetrical. GI: Abdomen is round non-distended, Abd is soft and non tender X 4 quads. : No signs and/or symptoms were reported regarding the genitourinary system. EENT: No signs and/or symptoms were reported regarding the EENT system. Derm: Skin is intact, Skin is pink, warm \T\ dry. Musculoskeletal: Range of motion: intact in all extremities. Vital Signs: 14:04 BP 124 / 82; Pulse 73; Resp 18; Temp 98; Pulse Ox 99% on R/A; Weight 111.13 kg; Height ph 5 ft. 9 in. ; Pain 8/10; 15:00 BP 126 / 81; Pulse 71; Resp 17; Pulse Ox 99% on R/A; rs5 14:04 Body Mass Index 36.18 (111.13 kg, 175.26 cm) ph 14:04 Pain Scale: Adult ph ED Course: 13:40 Patient arrived in ED. im 13:44 Denton Jeong MD is Attending Physician. rn 14:05 Triage completed. ph 14:05 Arm band placed on Patient placed in an exam room, on a stretcher. ph 14:06 Patient has correct armband on for positive identification. Bed in low position. Call ph light in reach. Side rails up X 1. Door closed. Noise minimized. 14:41 Nam Torre RN is Primary Nurse. rs5 15:00 No provider procedures requiring assistance completed. rs5 15:00 Patient did not have IV access during this emergency room visit. rs5 Administered Medications: 14:42 Drug: morphine IM 4 mg IM once Route: IM; Site: left deltoid; rs5 15:04 Follow up: Response: No adverse reaction rs5 14:42 Drug: Dexamethasone IM 10 mg IM once Route: IM; Site: left ventrogluteal; rs5 15:05 Follow up: Response: No adverse reaction rs5 Medication: 14:06 VIS not applicable for this client. ph Outcome: 14:51 Discharge ordered by . rn 15:05 Discharged to home ambulatory, rs5 15:05 Condition: stable 15:05 Discharge instructions given to patient, family, Instructed on discharge instructions, follow up and referral plans. medication usage, Demonstrated understanding of instructions, follow-up care, medications, Prescriptions given X 3, 15:06 Patient left the ED. rs5 Signatures: Denton Jeong MD MD rn Hall, Patricia, RN RN Nam Torre RN RN rs Renate Victor Corrections: (The following items were deleted from the chart) 16:40 16:39 BP 126 / 81; Pulse 71bpm; Resp 17bpm; Pulse Ox 99% RA; rs5 rs5
--- NOTE | 2023-09-15 14:51 | EDPHYS ---
Physician Documentation [facility] Name: Len Riddle Age: 58 yrs Sex: Male : 1965 Arrival Date: 09/15/2023 Time: 13:36 Bed 17 Private MD: ED Physician Denton Jeong HPI: 09/14 14:43 This 58 yrs old Male presents to ER via Ambulatory with complaints of Back Pain. rn 14:43 The patient presents with pain that is acute. The symptoms are located in the low back. rn Onset: The symptoms/episode began/occurred 2 day(s) ago. The pain radiates to the left leg. Modifying factors: The patient symptoms are alleviated by nothing, the patient symptoms are aggravated by any movement. Severity of symptoms: At their worst the symptoms were moderate, in the emergency department the symptoms are unchanged. The patient has experienced similar episodes in the past. Patient reports chronic back pain and chronic back issues, was lifting boxes and moving things around a few days ago when started having more back pain. No direct trauma or fall. No bowel or bladder issues. Pain starts in left lower back and radiates down left leg. No abdominal pain. No fever.. Historical: - Allergies: 14:05 No Known Drug Allergies; ph - PMHx: 14:05 Anxiety; Depression; enlarged prostate; Hypertensive disorder; insomnia; Kidney stones; ph - PSHx: 14:05 Lithotripsy; ph - Immunization history:: Adult Immunizations unknown. - Infectious Disease History:: Denies. - Social history:: Smoking status: Patient denies any tobacco usage or history of. - Family history:: not pertinent. - Hospitalizations: : No recent hospitalization is reported. ROS: 14:43 Constitutional: Negative for fever, chills, and weight loss, Cardiovascular: Negative rn for chest pain, palpitations, and edema, Respiratory: Negative for shortness of breath, cough, wheezing, and pleuritic chest pain, Abdomen/GI: Negative for abdominal pain, nausea, vomiting, diarrhea, and constipation, Back: Positive for left lower back pain MS/Extremity: Negative for injury and deformity, Neuro: Negative for headache, weakness, numbness, tingling, and seizure, Exam: 14:43 Constitutional: This is a well developed, well nourished patient who is awake, alert, rn and in no acute distress. Cardiovascular: Regular rate and rhythm. No pulse deficits. Abdomen/GI: Soft, nontender Back: No spinal tenderness. No costovertebral tenderness. Mild tenderness left peng-lumbar region. No masses. MS/ Extremity: Pulses equal, no cyanosis. Neurovascular intact. Full, normal range of motion. Equal circumference. Neuro: Awake and alert, GCS 15, oriented to person, place, time, and situation. Cranial nerves II-XII grossly intact. Motor strength 5/5 in all extremities. Sensory grossly intact. Vital Signs: 14:04 BP 124 / 82; Pulse 73; Resp 18; Temp 98; Pulse Ox 99% on R/A; Weight 111.13 kg; Height ph 5 ft. 9 in. ; Pain 8/10; 15:00 BP 126 / 81; Pulse 71; Resp 17; Pulse Ox 99% on R/A; rs5 14:04 Body Mass Index 36.18 (111.13 kg, 175.26 cm) ph 14:04 Pain Scale: Adult ph MDM: 13:44 Patient medically screened. rn 14:49 Differential diagnosis: arthritis, chronic back pain, sprain, Radiculopathy, disc rn disorder. Data reviewed: vital signs, nurses notes, and as a result, I will discharge patient. Counseling: I had a detailed discussion with the patient and/or guardian regarding the historical points, exam findings, and any diagnostic results supporting the discharge/admit diagnosis, the need for outpatient follow up, to return to the emergency department if symptoms worsen or persist or if there are any questions or concerns that arise at home. Special discussion: I discussed with the patient/guardian in detail that at this point there is no indication for admission to the hospital. It is understood, however, that if the symptoms persist or worsen the patient needs to return immediately for re-evaluation. Administered Medications: 14:42 Drug: morphine IM 4 mg IM once Route: IM; Site: left deltoid; rs5 15:04 Follow up: Response: No adverse reaction rs5 14:42 Drug: Dexamethasone IM 10 mg IM once Route: IM; Site: left ventrogluteal; rs5 15:05 Follow up: Response: No adverse reaction rs5 Disposition Summary: 09/15/23 14:51 Discharge Ordered Notes: Location: Home rn Problem: new rn Symptoms: have improved rn Condition: Stable rn Diagnosis - Low back pain rn - Muscle spasm of back rn Followup: rn - With: Private Physician - When: As needed - Reason: Recheck today's complaints, Re-evaluation by your physician Discharge Instructions: - Discharge Summary Sheet rn - Lumbosacral Radiculopathy rn - Muscle Cramps and Spasms rn - Musculoskeletal Pain rn Forms: - Medication Reconciliation Form rn - Antibiotic patent prosecution attorney - Prescription Opioid Use rn - Patient Portal Instructions rn - Leadership Thank You Letter rn Prescriptions: - Cyclobenzaprine 10 mg Oral tablet - take 1 tablet ORAL route every 8 hours As needed; 12 tablet; Refills: 0, rn Product Selection Permitted - Tramadol 50 mg Oral Tablet - take 1 tablet ORAL route every 8 hours as needed; 12 tablet; Refills: 0, rn Product Selection Permitted - Medrol (Vignesh) 4 mg Oral Tablets, Dose Pack - take 1 tablet ORAL route as directed - follow package instructions; 1 packet; rn Refills: 0, Product Selection Permitted Signatures: Denton Jeong MD MD rn Hall, Patricia, RN RN ph Sotelo, Ricky, RN RN rs5 Corrections: (The following items were deleted from the chart) 14:45 14:43 Constitutional: This is a well developed, well nourished patient who is awake, rn alert, and in no acute distress. Cardiovascular: Regular rate and rhythm. No pulse deficits. Abdomen/GI: Soft, nontender Back: No spinal tenderness. No costovertebral tenderness. Mild tenderness left peng-lumbar region. No masses. MS/ Extremity: Pulses equal, no cyanosis. Neurovascular intact. Full, normal range of motion. Equal circumference. rn
[2023-09-15 15:20] VITALS: BP 124/82; TEMP 98; O2SAT 99
== END 2023-09-15 15:06 | disposition home or self-care (01) ==
LOC: ER 13:36
DX: M62.830 Muscle spasm of back (principal)
CPT/HCPCS: 96372; 99284; J1100